=== PATIENT | male | born 1990 | race Caucasian/White ===

== ENCOUNTER 2021-11-14 18:17 | Emergency (ER) | payer OTHER, SELFPAY ==
[2021-11-14 18:43] VITALS: BP 119/40; PULSE 61; RESP 18; TEMP 36.4; O2SAT 97; BMI 29.7
[2021-11-14 18:57] LABS: MANUAL DIFF FLAG NO
[2021-11-14 18:58] LABS: Basophils Absolute Auto 0.1 X10*3/uL (0.0-0.2); Basophils Percent Auto 1.6 % (0-2); Eosinophils Absolute Auto 0.3 X10*3/uL (0.0-0.4); Eosinophils Percent Auto 8.7 % (0-4); Hematocrit 45.4 % (42.0-52.0); Hemoglobin 15.2 g/dl (14.0-18.0); Lymphocytes Absolute Auto 1.6 X10*3/uL (1.2-4.9); Lymphocytes Percent Auto 42.9 % (20-40); Mean Corpuscular HGB Conc 33.5 g/dl (31.0-36.0); Mean Corpuscular Hemoglobin 29.1 pg (27.0-33.0); Mean Platelet Volume 10.8 fL (9.4-12.4); Monocytes Absolute Auto 0.7 X10*3/uL (0.1-1.2); Monocytes Percent Auto 17.1 % (2-11); Neutrophils Absolute Auto 1.1 x10*3/uL (2.0-8.3); Neutrophils Percent Auto 29.7 % (45-73); Platelet Count 147 X10*3/uL (160-400); Red Blood Count 5.22 X10*6/uL (4.60-5.80); Red Cell Distribution Width 13.5 % (11.0-16.0); White Blood Count 3.8 X10*3/uL (4.8-10.8)
[2021-11-14 19:13] LABS: Anion Gap 10 (12-20); Blood Urea Nitrogen 14 mg/dL (9-16); Calcium 9.4 mg/dL (8.4-10.2); Carbon Dioxide 28 mmol/L (22-29); Chloride 106 mmol/L (96-108); Creatinine Clr Calc Pharmacy 115.8; Estimated Glomerular Filt Rate > 60; Glucose Random 101 mg/dL (60-115); Potassium 4.3 mmol/L (3.3-5.1); Sodium 140 mmol/L (135-145)
--- NOTE | 2021-11-14 22:00 | ED.HA ---
HPI - Headache General Chief Complaint: Headache Stated Complaint: consistent head pressure Time Seen by Provider: 11/14/21 21:56 Source: patient Mode of arrival: ambulatory Limitations: no limitations History of Present Illness HPI Narrative: Patient's history of migraines usually does not get very severe headache since yesterday noticed left frontal area headache with light sensitivity and nausea no vomiting no fever no neck pain no head injury no focal deficit no seizures Related Data Previous Rx's Medication Instructions Recorded ksibrqcspc-txivycudiwzcm-jssjytiz 1 cap PO Q6H PRN #20 cap 11/14/21 50 mg-300 mg-40 mg capsule (Fioricet) sumatriptan succinate 50 mg tablet 50 mg PO Q2H PRN #10 tab 11/14/21 (Imitrex) Allergies Allergy/AdvReac Type Severity Reaction Status Date / Time amoxicillin [AMOXICILLIN] Allergy Unknown UNKNOWN Verified 11/14/21 18:43 red dye [RED DYE] Allergy Unknown HALLUCINATI Verified 11/14/21 18:43 ONS tramadol [TRAMADOL] Allergy Unknown NAUSEA & Verified 11/14/21 18:43 VOMITING Review of Systems Review of Systems: Yes all other systems are reviewed and are negative [facility] Social History Social History Advance Directives: No Physical Exam Vital Signs: Vital Signs: Last Vital Signs Temp 97.5 F 11/14/21 18:43 Pulse 61 11/14/21 18:43 Resp 18 11/14/21 18:43 BP 119/40 L 11/14/21 18:43 Pulse Ox 97 11/14/21 18:43 BMI result Body Mass Index 29.7 Appearance: Alert. Oriented X3. No acute distress. Eyes: PERRLA, sensitive to light ENT: Pharynx normal. Oral Mucosa moist Neck: Normal inspection. Neck supple. No temporal artery tenderness CVS: Normal heart rate and rhythm. Pulses normal. Respiratory: No respiratory distress. Equal air entry bilateral, Abdomen: Soft and nontender. Bowel sounds are present, Skin: Skin warm and dry. Normal skin color. Normal skin turgor. Extremities: No lower extremity edema. No calf tenderness Neuro: Oriented X 3. No motor deficit. No sensory deficit.No cerebellar signs , cranial nerves II-XII intact MDM - Headache MDM Narrative Medical decision making narrative: Patient with migraine headache improved after subcu Imitrex discharge patient home Imitrex and Fioricet Lab Data Attestation: I reviewed the patient's lab results. Result diagrams: 11/14/21 18:49 11/14/21 18:49 Labs: Lab Results 11/14/21 11/14/21 Range/Units 18:49 18:49 WBC 3.8 L (4.8-10.8) X10*3/uL RBC 5.22 (4.60-5.80) X10*6/uL Hgb 15.2 (14.0-18.0) g/dl Hct 45.4 (42.0-52.0) % MCV 87.0 (80.0-98.0) fL MCH 29.1 (27.0-33.0) pg MCHC 33.5 (31.0-36.0) g/dl RDW 13.5 (11.0-16.0) % Plt Count 147 L (160-400) X10*3/uL MPV 10.8 (9.4-12.4) fL Immature Gran % (Auto) 0.0 (0.0-0.4) % Neut % (Auto) 29.7 L (45-73) % Lymph % (Auto) 42.9 H (20-40) % [place] % (Auto) 17.1 H (2-11) % Eos % (Auto) 8.7 H (0-4) % Baso % (Auto) 1.6 (0-2) % Lymph # (Auto) 1.6 (1.2-4.9) X10*3/uL [place] # (Auto) 0.7 (0.1-1.2) X10*3/uL Eos # (Auto) 0.3 (0.0-0.4) X10*3/uL Baso # (Auto) 0.1 (0.0-0.2) X10*3/uL Abs Immat Gran (auto) 0.00 (0.00-0.03) X10*3/uL Absolute Neuts (auto) 1.1 L (2.0-8.3) x10*3/uL Absolute Nucleated RBC 0.000 (0.0-0.012) X10*3/uL Nucleated RBC % (auto) 0.0 (0.0-0.2) /100WBC Sodium 140 (135-145) mmol/L Potassium 4.3 (3.3-5.1) mmol/L Chloride 106 (96-108) mmol/L Carbon Dioxide 28 (22-29) mmol/L Anion Gap 10 L (12-20) BUN 14 (9-16) mg/dL Creatinine 0.96 (0.5-1.4) mg/dL Estim Creat Clear Calc 115.8 Estimated GFR > 60 Random Glucose 101 (60-115) mg/dL Calcium 9.4 (8.4-10.2) mg/dL Discharge Plan Discharge Clinical Impression: Migraine Patient Disposition: Home, Self-Care Instructions: Migraine Headache (ED) Additional Instructions: Rest at home Take medication for headache as prescribed Prescriptions: New sumatriptan succinate [Imitrex] 50 mg tablet 50 mg PO Q2H PRN (Reason: migraine headache) Qty: 10 0RF Rx Instructions: do not exceed 2 doses per 24 hrs vealofrocr-dasdjvikybgwi-vuhs [Fioricet] 50-300-40 mg capsule 1 cap PO Q6H PRN (Reason: headache) Qty: 20 0RF Stand Alone Forms: Work/School Release Interventions: ED Discharge Assessment Last Done: 11/14/21 23:55 Discharge Date/Time: 11/14/21 23:56
[2021-11-14] MEDS: SUMAtriptan succinate 6 MG/0.5 ML VIAL SUBCUT (22:55)
[2021-11-14] MEDS: Ondansetron ODT 4 MG TAB.RAPDIS TRANSLINGU (22:56)
[2021-11-14] MEDS: Butalb/Acetamin/Caff 50/325/40 TABLET 1 TAB PO (23:50)
== END 2021-11-14 23:56 | disposition home or self-care (01) ==
PROVIDERS: Emergency Provider Internal Medicine
DX: G43.909 Migraine, unspecified, not intractable, without status migrainosus (principal)
CPT/HCPCS: 36415; 80048; 85025; 96372; 99283; 99284; J3030

== ENCOUNTER 2022-05-23 09:15 | Emergency (ER) | payer OTHER, SELFPAY ==
--- NOTE | ~2022-05-23 | XR_ITS ---
EXAMINATION: XR CHEST CLINICAL INFORMATION: Chest pain COMPARISON: Previous chest x-ray most recent May 2019 TECHNIQUE: Frontal view of the chest was obtained. FINDINGS: The cardiac and mediastinal contours are stable. The lung volumes are low. There is crowding of the central bronchovascular markings. The lungs are otherwise clear. There is no pleural effusion or pneumothorax. Visualized bony structures are unremarkable. XR/XR chest 1V IMPRESSION: Low lung volumes. No evidence for acute disease in the chest.
[2022-05-23 09:20] VITALS: BP 108/79; PULSE 73; RESP 18; TEMP 36.6; O2SAT 99; BMI 29.7
[2022-05-23 09:48] VITALS: BP 151/88; PULSE 80; RESP 14; TEMP 36.9; O2SAT 96
--- NOTE | 2022-05-23 09:48 | ECG_ITS ---
Test Reason : CHEST PAIN Blood Pressure : / mmHG Vent. Rate : 066 BPM Atrial Rate : 066 BPM P-R Int : 148 ms QRS Dur : 096 ms QT Int : 412 ms P-R-T Axes : 072 043 031 degrees QTc Int : 431 ms Normal sinus rhythm Normal ECG When compared with ECG of 25-MAY-2019 12:11, No significant change was found Referred By: Cecelia Sen Electronically Signed By:CRUZ LINO
--- NOTE | 2022-05-23 09:58 | ED.CHESTPAIN ---
HPI - Chest Pain General Chief Complaint: Chest Pain Stated Complaint: chest pain Time Seen by Provider: 05/23/22 09:48 Source: patient Mode of arrival: ambulatory Limitations: no limitations History of Present Illness HPI narrative: 31 yo male with history of migraines who presents to the ER for evaluation of acute onset of chest pain that started 30 minutes prior to arrival when he was on his way to work. He states he was a passenger in the car when he had sudden onset of chest pain in his left lower chest, shortness of breath, and radiation of the pain down his left arm. He reports the pain is improved on arrival to the ER in is no longer going down his left arm. He is his eyes closed during interview due to his reported shortness of breath and difficulty breathing. He reports history of similar episodes where he came to the hospital and was told it was anxiety. He is slightly anxious now but does not recall being anxious before the chest pain came on. He denies any nausea, diaphoresis. He is a smoker. He denies any history of hypertension, hyperlipidemia, family history of cardiac disease. MD complaint: chest pain Onset (ago): hour(s) (2) Timing of current episode: constant Prior episodes: Yes Onset: during rest Pain location: left chest Pain radiation: left arm Severity: moderate Pain scale (0-10): 5 Quality: aching Relieving factors: rest Exacerbating factors: stress Associated symptoms: dyspnea Treatment prior to arrival: none Risk Factors Coronary artery disease risk factors: smoking history Thoracic aortic dissection risk factors: none Related Data Previous Rx's Medication Instructions Recorded pzzazxvhwn-bqjoifkowyati-uagcrdkc 1 cap PO Q6H PRN headache #20 caps 11/14/21 50 mg-300 mg-40 mg capsule (Fioricet) sumatriptan succinate 50 mg tablet 50 mg PO Q2H PRN migraine headache 11/14/21 (Imitrex) #10 tabs Allergies Allergy/AdvReac Type Severity Reaction Status Date / Time amoxicillin [AMOXICILLIN] Allergy Unknown UNKNOWN Verified 11/14/21 18:43 red dye [RED DYE] Allergy Unknown HALLUCINATI Verified 11/14/21 18:43 ONS tramadol [TRAMADOL] Allergy Unknown NAUSEA & Verified 11/14/21 18:43 VOMITING Review of Systems Review of Systems: Constitutional: No Fever, No Chills ENT/Mouth: No sore throat, No Rhinorrhea Eyes: No Eye Pain, No Swelling, No Redness Cardiovascular: + Chest Pain, + SOB, No Orthopnea, No Edema Respiratory: No Cough, No Sputum, No Wheezing, No dyspnea Gastrointestinal: No Nausea, No Vomiting, No Diarrhea, No abdominal Pain Musculoskeletal: No joint pain, No Myalgias Skin: No Skin Lesions, No rash Neuro: No Weakness, No Numbness, No Dizziness, No Headache Psych: + Anxiety/Panic, No Depression Heme/Lymph: No Bruising, No Lymphadenopathy PMFSH Social History Social History Patient Tobacco Use Status: Current everyday Tobacco user Advance Directives: No Advance Directives Information Provided: No Physical Exam Vital Signs: Vital Signs: Last Vital Signs Temp 96.9 F 05/23/22 12:18 Pulse 72 05/23/22 12:18 Resp 14 05/23/22 12:18 BP 103/52 L 05/23/22 12:18 Pulse Ox 95 05/23/22 12:18 O2 Del Method 05/23/22 12:18 BMI result Body Mass Index 29.7 Appearance: Alert. Oriented X3. No acute distress. Eyes: Pupils equal, round and reactive to light. ENT: Pharynx normal. Neck: Normal inspection. Neck supple. CVS: Normal heart rate and rhythm. Pulses normal. Respiratory: No respiratory distress. Breath sounds normal. Abdomen: Soft and nontender. +BS x4 Skin: Skin warm and dry. Normal skin color. Normal skin turgor. No rashes. Extremities: No lower extremity edema. Neuro/psych: Oriented X 3. Pressured and rapid speech. Anxious. No motor deficit. No sensory deficit. Course Course Course Narrative: 31-year-old male with a history of migraines and prior anxiety presents to the ER for evaluation of left-sided chest pain, shortness of breath. He arrives to the ER anxious. Hx anxiety related chest pain in the past. Only risk factor for ACS is smoking. No risk factors for PE. Will check EKG and troponin. Doubt cardiac etiology more likely anxiety. Will give a dose of Ativan and reassess. Reevaluation(s) Reevaluation #1: Patient sleeping comfortably. His workup is unremarkable. Troponin less than 3.5. EKG without ischemic changes. He is stable for discharge home. PCP list provided, encourage follow-up with PCP for further evaluation and treatment. Patient agrees with plan. MDM - Chest Pain Medical Records Data Attestation: I reviewed the patient's medical records. Lab Data Attestation: I reviewed the patient's lab results. Result diagrams: 05/23/22 10:21 05/23/22 10:21 Labs: Lab Results 05/23/22 05/23/22 05/23/22 Range/Units 10: 10: 10: WBC 2.9 L (4.8-10.8) X10*3/uL RBC 5.09 (4.60-5.80) X10*6/uL Hgb 15.1 (14.0-18.0) g/dl Hct 42.3 (42.0-52.0) % MCV 83.1 (80.0-98.0) fL MCH 29.7 (27.0-33.0) pg MCHC 35.7 (31.0-36.0) g/dl RDW 13.3 (11.0-16.0) % Plt Count 143 L (160-400) X10*3/uL MPV 10.8 (9.4-12.4) fL Immature Gran % (Auto) 0.0 (0.0-0.4) % Neut % (Auto) 18.5 L (45-73) % Lymph % (Auto) 49.8 H (20-40) % [place] % (Auto) 23.2 H (2-11) % Eos % (Auto) 7.5 H (0-4) % Baso % (Auto) 1.0 (0-2) % Lymph # (Auto) 1.5 (1.2-4.9) X10*3/uL [place] # (Auto) 0.7 (0.1-1.2) X10*3/uL Eos # (Auto) 0.2 (0.0-0.4) X10*3/uL Baso # (Auto) 0.0 (0.0-0.2) X10*3/uL Abs Immat Gran (auto) 0.00 (0.00-0.03) X10*3/uL Absolute Neuts (auto) 0.5 L (2.0-8.3) x10*3/uL Absolute Nucleated RBC 0.000 (0.0-0.012) X10*3/uL Nucleated RBC % (auto) 0.0 (0.0-0.2) /100WBC Sodium 140 (135-145) mmol/L Potassium 3.8 (3.3-5.1) mmol/L Chloride 104 (96-108) mmol/L Carbon Dioxide 25 (22-29) mmol/L Anion Gap 15 (12-20) BUN 19 H (9-16) mg/dL Creatinine 1.10 (0.5-1.4) mg/dL Estim Creat Clear Calc 101.0 Estimated GFR > 60 Random Glucose 105 (60-115) mg/dL Calcium 9.5 (8.4-10.2) mg/dL Magnesium 1.8 (1.6-2.6) mg/dL Total Bilirubin 0.7 (0.0-1.0) mg/dL Direct Bilirubin 0.3 (0.0-0.5) mg/dL AST 19 (5-37) U/L ALT 17 (0-40) U/L Alkaline Phosphatase 63 (39-117) U/L Troponin I High Sens < 3.5 (<3.5-35.0) ng/L Total Protein 7.0 (6.5-8.0) g/dL Albumin 4.6 (3.5-5.0) g/dL COVID-19 ([facility]) (Negative) COVID-19 Clin Com 05/23/22 Range/Units 10:21 WBC (4.8-10.8) X10*3/uL RBC (4.60-5.80) X10*6/uL Hgb (14.0-18.0) g/dl Hct (42.0-52.0) % MCV (80.0-98.0) fL MCH (27.0-33.0) pg MCHC (31.0-36.0) g/dl RDW (11.0-16.0) % Plt Count (160-400) X10*3/uL MPV (9.4-12.4) fL Immature Gran % (Auto) (0.0-0.4) % Neut % (Auto) (45-73) % Lymph % (Auto) (20-40) % [place] % (Auto) (2-11) % Eos % (Auto) (0-4) % Baso % (Auto) (0-2) % Lymph # (Auto) (1.2-4.9) X10*3/uL [place] # (Auto) (0.1-1.2) X10*3/uL Eos # (Auto) (0.0-0.4) X10*3/uL Baso # (Auto) (0.0-0.2) X10*3/uL Abs Immat Gran (auto) (0.00-0.03) X10*3/uL Absolute Neuts (auto) (2.0-8.3) x10*3/uL Absolute Nucleated RBC (0.0-0.012) X10*3/uL Nucleated RBC % (auto) (0.0-0.2) /100WBC Sodium (135-145) mmol/L Potassium (3.3-5.1) mmol/L Chloride (96-108) mmol/L Carbon Dioxide (22-29) mmol/L Anion Gap (12-20) BUN (9-16) mg/dL Creatinine (0.5-1.4) mg/dL Estim Creat Clear Calc Estimated GFR Random Glucose (60-115) mg/dL Calcium (8.4-10.2) mg/dL Magnesium (1.6-2.6) mg/dL Total Bilirubin (0.0-1.0) mg/dL Direct Bilirubin (0.0-0.5) mg/dL AST (5-37) U/L ALT (0-40) U/L Alkaline Phosphatase (39-117) U/L Troponin I High Sens (<3.5-35.0) ng/L Total Protein (6.5-8.0) g/dL Albumin (3.5-5.0) g/dL COVID-19 ([facility]) Negative (Negative) COVID-19 Clin Com See Note ECG Data ECG #1: Attestation: I personally reviewed and interpreted this ECG as follows: ECG interpretation date: 05/23/22 ECG interpretation time: 12:32 Interpretation: normal sinus rhythm, HR 66 bpm, normal LA interval, normal QTc, no ST segment elevations or depressions Discharge Plan Discharge Clinical Impression: Chest pain, Anxiety Patient Disposition: Home, Self-Care Instructions: Chest Pain (DC), Anxiety (ED) Additional Instructions: Your workup today was unremarkable. Your symptoms are most likely due to anxiety. Recommend following up with a primary care doctor for further evaluation and treatment. Recommend stopping smoking. If you develop new or worsening symptoms call 911 or come back to the ER for further evaluation. Prescriptions: No Action sumatriptan succinate [Imitrex] 50 mg tablet 50 mg PO Q2H PRN (Reason: migraine headache) Qty: 10 0RF Rx Instructions: do not exceed 2 doses per 24 hrs fuirptqlhu-puyjeevfmvlcu-htsx [Fioricet] 50-300-40 mg capsule 1 cap PO Q6H PRN (Reason: headache) Qty: 20 0RF Stand Alone Forms: Work/School Release
[2022-05-23 10:27] LABS: Eosinophils Absolute Auto 0.2 X10*3/uL (0.0-0.4); Eosinophils Percent Auto 7.5 % (0-4); Hematocrit 42.3 % (42.0-52.0); Hemoglobin 15.1 g/dl (14.0-18.0); Lymphocytes Absolute Auto 1.5 X10*3/uL (1.2-4.9); Lymphocytes Percent Auto 49.8 % (20-40); Mean Corpuscular HGB Conc 35.7 g/dl (31.0-36.0); Mean Corpuscular Hemoglobin 29.7 pg (27.0-33.0); Mean Corpuscular Volume 83.1 fL (80.0-98.0); Mean Platelet Volume 10.8 fL (9.4-12.4); Monocytes Absolute Auto 0.7 X10*3/uL (0.1-1.2); Monocytes Percent Auto 23.2 % (2-11); Neutrophils Absolute Auto 0.5 x10*3/uL (2.0-8.3); Neutrophils Percent Auto 18.5 % (45-73); Platelet Count 143 X10*3/uL (160-400); Red Blood Count 5.09 X10*6/uL (4.60-5.80); Red Cell Distribution Width 13.3 % (11.0-16.0); SCAN SMEAR FLAG 1; White Blood Count 2.9 X10*3/uL (4.8-10.8)
[2022-05-23] MEDS: LORazepam 1 MG TABLET PO (10:33)
[2022-05-23 10:34] VITALS: BP 101/55; PULSE 76; RESP 20; TEMP 36.9; O2SAT 99
[2022-05-23 10:34] LABS: MANUAL DIFF FLAG NO
--- NOTE | 2022-05-23 10:41 | PC.NURSE ---
patient a/ox4 . ciscorrla . heart rate regular at 64 beats per minute . lungs clear . skin pink warm and dry . abdomen soft and not tender . positive bowel sounds in all quadrants . patient reports sternal chest pain that started this AM on the way he found out about life stressors such as his assets being frozen by the IRS , he is restless in bed fidgeting back and forth . Labs have been drawn . EKG done . Patient on Bedside monitor . Patient medicated with Ativan as ordered by provider . patient aware of plan of care .
[2022-05-23 10:42] LABS: Alanine Aminotransferase 17 U/L (0-40); Albumin Level 4.6 g/dL (3.5-5.0); Alkaline Phosphatase 63 U/L (39-117); Anion Gap 15 (12-20); Aspartate Amino Transferase 19 U/L (5-37); Bilirubin Direct 0.3 mg/dL (0.0-0.5); Bilirubin Total 0.7 mg/dL (0.0-1.0); Blood Urea Nitrogen 19 mg/dL (9-16); Calcium 9.5 mg/dL (8.4-10.2); Carbon Dioxide 25 mmol/L (22-29); Chloride 104 mmol/L (96-108); Estimated Glomerular Filt Rate > 60; Glucose Random 105 mg/dL (60-115); Magnesium 1.8 mg/dL (1.6-2.6); Potassium 3.8 mmol/L (3.3-5.1); Sodium 140 mmol/L (135-145)
[2022-05-23 10:43] LABS: COVID-19 Test Negative (Negative); IDNOW Serial# 55D5AD1C
[2022-05-23 10:48] LABS: Troponin-I High Sensitivity < 3.5 ng/L (<3.5-35.0)
[2022-05-23 12:18] VITALS: BP 103/52; PULSE 72; RESP 14; TEMP 36.1; O2SAT 95
== END 2022-05-23 12:41 | disposition home or self-care (01) ==
PROVIDERS: Physician Assistant; Emergency Provider Emergency Medicine
DX: R07.9 Chest pain, unspecified (principal); F41.9 Anxiety disorder, unspecified; F17.200 Nicotine dependence, unspecified, uncomplicated; Z20.822 Contact with and (suspected) exposure to COVID-19
CPT/HCPCS: 71045; 80048; 80076; 83735; 84484; 85025; 87635; 93005; 99283; 99285

== ENCOUNTER 2023-03-13 14:27 | Emergency (ER) | payer OTHER, SELFPAY ==
--- NOTE | ~2023-03-13 | XR_ITS ---
EXAMINATION: XR HAND, RIGHT CLINICAL INFORMATION: Trauma. COMPARISON: None available. TECHNIQUE: PA, lateral, and oblique views of the right hand. FINDINGS: The bones and soft tissues are normal. No fracture. Alignment is anatomic. Joint spaces are maintained. No erosions or soft tissue calcifications. XR/XR hand RT 2V IMPRESSION: Unremarkable right hand exam.
[2023-03-13 15:06] VITALS: BP 130/81; PULSE 69; RESP 17; TEMP 36.1; O2SAT 98; BMI 32.4
--- NOTE | 2023-03-13 15:06 | ED.UPPEXIN ---
HPI - Extremity Injury (Upper) General Chief Complaint: Extremity Injury, Lower Stated Complaint: r middle finger inj Time Seen by Provider: 03/13/23 18:14 Source: patient and family (patient's father) Mode of arrival: ambulatory Limitations: no limitations History of Present Illness HPI narrative: Patient is a 32 year old assigned male at with no reported medical history presenting to the emergency department today with right middle finger pain. Patient states that last night he slammed his right middle finger in a door on accident and he is continuing to have pain today. Patient denies any dizziness, lightheadedness, abdominal pain, nausea, vomiting, fever, chills, blurry vision, double vision, loss of vision, chest pain, difficulty breathing, shortness of breath, back pain, night sweats, pain with urination, increased urinary frequency, increased urinary urgency, blood in his urine or stool, syncope or a near syncopal episode, bowel incontinence, bladder incontinence, bowel retention, bladder retention, or any other complaints at this time. MD complaint: injury to: right and finger (middle) Onset (ago): day(s) (1) Other injuries: none Severity: mild Severity scale (1-10): 2 Relieving factors: none Exacerbating factors: none Context: crush Associated symptoms: denies other symptoms Related Data Previous Rx's Medication Instructions Recorded mepatanrls-saczrqqoouhpn-kpxttqlx 1 cap PO Q6H PRN headache #20 caps 11/14/21 50 mg-300 mg-40 mg capsule (Fioricet) sumatriptan succinate 50 mg tablet 50 mg PO Q2H PRN migraine headache 11/14/21 (Imitrex) #10 tabs Allergies Allergy/AdvReac Type Severity Reaction Status Date / Time amoxicillin [AMOXICILLIN] Allergy Unknown UNKNOWN Verified 11/14/21 18:43 red dye [RED DYE] Allergy Unknown HALLUCINATI Verified 11/14/21 18:43 ONS tramadol [TRAMADOL] Allergy Unknown NAUSEA & Verified 11/14/21 18:43 VOMITING Review of Systems Constitutional: Constitutional: Reports no additional constitutional complaints, Denies chills, Denies fever(s) and Denies night sweats Eyes: Eyes: Reports no additional eye complaints, Denies blurry vision, Denies change in vision, Denies diplopia, Denies eye discharge, Denies loss of vision and Denies eye pain ENT: Denies dizziness Cardiovascular: Cardiovascular: Reports no additional cardiovascular complaints, Denies chest pain, Denies lightheadedness, Denies Loss of Consciousness and Denies dyspnea Respiratory: Respiratory: Reports no additional respiratory complaints and Denies dyspnea Gastrointestinal: Gastrointestinal: Reports no additional gastrointestinal complaints, Denies abdominal pain, Denies melena, Denies hematochezia, Denies change in bowel habits and Denies change in stool character Genitourinary: Genitourinary: Reports no additional male genitourinary complaints, Denies hematuria, Denies oliguria, Denies difficulty urinating, Denies dysuria, Denies urinary frequency, Denies urinary hesitancy, Denies urinary incontinence and Denies urinary urgency Musculoskeletal: Musculoskeletal: Reports no additional musculoskeletal complaints, Denies numbness and Denies tingling Comments: right middle finger pain Neurologic: Denies dizziness, Denies loss of vision, Denies numbness and Denies tingling Psychiatric: Psychiatric: Reports no additional psychiatric complaints Endocrine: Endocrine: Reports no additional endocrine complaints Hematologic/Lymphatic: Hematologic/Lymphatic: Reports no additional hematologic/lymphatic complaints Allergic/Immunologic: Allergic/Immunologic: Reports no additional allergic/immunologic complaints PMFSH Past Medical History Attestation statement: The following information was validated with the patient. (all information validated with the patient's father) Source: old records reviewed, obtained from family (patient's father provided additional history and confirmed the history provided by the patient.) and nursing notes reviewed Social History Social History Patient Tobacco Use Status: Current everyday Tobacco user Advance Directives: No Advance Directives Information Provided: Yes Physical Exam Vital Signs: Vital Signs: Last Vital Signs Temp 97.0 F 03/13/23 15:06 Pulse 69 03/13/23 15:06 Resp 17 03/13/23 15:06 BP 130/81 03/13/23 15:06 Pulse Ox 98 03/13/23 15:06 O2 Del Method Room Air 03/13/23 15:06 BMI result Body Mass Index 32.4 Const: General: cooperative, no acute distress, alert and awake Nutritional Appearance: well nourished Orientation/consciousness: patient oriented x3 Limitations: no limitations HEENT: Head: Yes normal to inspection and Yes atraumatic Ears: hearing grossly normal bilaterally and external ears normal General nose exam: Normal external nose present, no nasal discharge noted and no epistaxis Face and sinus: Yes normal facial exam, No abrasion and No laceration Mouth: Normal oral and palatal mucosa present, no drooling and no muffled voice Eyes: General: appearance normal, both eyes and all related structures Periorbital: periorbital findings normal Eyelids: Yes eyelids normal Conjunctivae: conjunctivae normal Pupils: Equal, round and reactive pupils present EOM: EOMs intact bilaterally Neck: Neck: Yes normal visual inspection, Yes full ROM and Yes no lymphadenopathy Chest: Chest palpation & inspection: normal inspection of the chest Resp: Effort & Inspection: normal respiratory effort and able to speak in complete sentences GI: Inspection: Yes normal to inspection Neuro: General: patient oriented x3 and moves all extremities Cranial nerves: Yes Equal, round and reactive pupils present Cognition (Neuro): normal cognition Motor exam (neuro): 5/5 motor strength present throughout Sensory Exam: Normal double simultaneous stimulation for sensation Coordination: [id number]-[id number] test normal Extrem: Other: minimal bruising and swelling to the right 3rd digit including minimal bruising under the nail of the right 3rd digit. Decreased extension / flexion at the DIP joint of the right 3rd finger. General: Yes capillary refill normal Psych: Appearance: grossly normal Mental Status: mental status grossly normal Affect: normal affect Attitude: cooperative Thought process: Normal thought process present Thought content: Normal thought content present Insight: Good insight present (Psych) Course Course Course Narrative: This is an RME: Additional HPI, ROS, PE not included below will be deferred to primary provider. Patient is a 32-year-old male presents emergency department for evaluation right middle finger injury. Reports that he accidentally slammed in a door yesterday night. Finger with decreased flexion. scabbed laceration and subungal hematoma. Report last tetanus vaccination 2 years ago. Plan: XR right hand, placed in waiting room pending bed availability Medical Decision Making Medical Decision Making MDM Narrative: Patient is a 32 year old assigned male at with no reported medical history presenting to the emergency department today with right 3rd finger pain. Patient's physical exam was as noted in the physical exam portion of this chart. Patient's right hand x-ray showed no acute process. Given the patient's physical examination and current clinical presentation, patient's finger will be thoroughly cleaned and splinted in a foam finger splint. I explained my physical exam findings as well as all test results to the patient and the patient's father. I answered all questions asked by the patient and the patient's father. Patient's finger was cleaned and placed in a foam finger splint, without incident. Patient's PMS was intact prior to and after splint placement. I stressed the importance of the patient taking his medication as prescribed. I stressed the importance of the patient following up with his primary care provider and an orthopedic provider. I stressed the importance of the patient returning to the emergency department immediately if his symptoms were to worsen or if he were to develop any dizziness, shortness of breath, difficulty breathing, chest pain, blurry vision, loss of vision, nausea, vomiting, abdominal pain, fever, chills, back pain, or any other complaints. Patient and the patient's father verbalized agreement and understanding with this treatment plan and discharge. Differential Diagnosis Differential Diagnoses: The differential diagnosis associated with the presentation includes finger fracture finger ligament injury finger tendon injury finger sprain finger strain crush injury to finger Radiology Impression Discussion of test interpretation with radiology: I have reviewed the radiologist's reading. Radiologist Impression: My interpretation is in agreement with the radiologist's impression of this imaging study. EXAMINATION: XR HAND, RIGHT CLINICAL INFORMATION: Trauma.? COMPARISON: None available.? TECHNIQUE: PA, lateral, and oblique views of the right hand. FINDINGS: The bones and soft tissues are normal. No fracture. Alignment is anatomic. Joint spaces are maintained. No erosions or soft tissue calcifications.? XR/XR hand RT 2V IMPRESSION: Unremarkable right hand exam. Dictated By: Pierce Lee MD Signed By: Electronically signed by Pierce Lee MD 03/13/23 1258 Independent Historian Clinical information obtained from an independent historian. History obtained from or confirmed by: Parent (patient's father provided additional history and confirmed the history provided by the patient) Procedures Orthopedic Splinting/Casting Injury #1: Side: right Upper Extremity Injury Location: finger (3rd) Upper Extremity Immobilizer: finger (other) Discharge Plan Discharge Clinical Impression: Finger injury, Finger sprain Patient Disposition: Home, Self-Care Instructions: Finger Sprain (ED) Additional Instructions: Follow up with your primary care provider and an orthopedic provider. Return to the emergency department immediately if your symptoms worsen or if you develop any dizziness, shortness of breath, difficulty breathing, chest pain, blurry vision, loss of vision, nausea, vomiting, abdominal pain, fever, chills, back pain, or any other complaints. Prescriptions: No Action sumatriptan succinate [Imitrex] 50 mg tablet 50 mg PO Q2H PRN (Reason: migraine headache) Qty: 10 0RF Rx Instructions: do not exceed 2 doses per 24 hrs ajubpuqzth-[id number]-ymcx [Fioricet] 50-300-40 mg capsule 1 cap PO Q6H PRN (Reason: headache) Qty: 20 0RF Referrals: [facility] [place] [facility] [Provider Group] (Call to establish and follow up with a primary care provider. If you already have a primary care provider, please follow up with them.) [facility] [place] [facility], [place] [Provider Group] (Call to establish and follow up with a primary care provider. If you already have a primary care provider, please follow up with them.) [facility] [place] [facility],[place] [Provider Group] (Call to establish and follow up with a primary care provider. If you already have a primary care provider, please follow up with them.) [facility] [place] [Provider Group] (Call to establish and follow up with an orthopedic provider. ) Interventions: ED Discharge Assessment Last Done: 03/13/23 18:39 Discharge Date/Time: 03/13/23 18:39 Print Language: Marshallese
== END 2023-03-13 18:39 | disposition home or self-care (01) ==
PROVIDERS: Emergency Provider Emergency Medicine
DX: M79.644 Pain in right finger(s) (principal)
CPT/HCPCS: 73120; 99282; 99283

== ENCOUNTER 2023-03-19 11:27 | Outpatient (AMB) | payer OTHER, SELFPAY ==
--- NOTE | 2023-03-19 11:31 | MHC.OFFVIS ---
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 Patient reports he slammed his right middle finger in a door by accident and he is continues to have pain. His pain radiates down to his PIP as well as numbness and tinglings. He is unable to bend his finger to make a fist. At day 2 from injury he took his finger out of splint and noticed pus was draining from wound. 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 He was seen at ER where he was placed in a splint. He states he has pain numbness and tingling in his right middle finger which radiates down to his PIP joint. He is unable to bend his finger to make a fist. He also reports he removed his splint on day 2 of his injury and noticed pus draining from the wound. He was not placed on abx. [facility] Medical History (Updated 03/19/23 @ 12:45 by Gaby Estrada PA-C) Acute anxiety Social History (Updated 03/19/23 @ 11:39 by ABUNDIO Almazan) Patient Tobacco Use Status: Current everyday Tobacco user Current occupational status: unemployed Current occupation: right hand dominant Review of Systems Const All systems reviewed & are unremarkable except as noted in HPI and below Physical Exam Vital Signs: BMI result Body Mass Index 32.4 Const General: cooperative, healthy appearing, comfortable, no acute distress, well developed and alert Orientation/consciousness: patient oriented x3 HEENT Head: Yes normal to inspection, Yes normocephalic and Yes atraumatic Eyes General: appearance normal, both eyes and all related structures Resp Effort & Inspection: normal respiratory effort and able to speak in complete sentences Cardio Rate: regular rate Peripheral pulses: Peripheral pulses 2+ throughout GI Palpation (GI): Soft to palpation Skin Lesions: no lesions Rashes: no rashes Neuro General: patient oriented x3 Extrem Other: Right middle finger: Normal to inspection. He does have a subungual hematoma of the right middle finger and he does have laceration on distal aspect of phalanx on the volar side with some decreased sensation. There is no active drainage, no redness, no swelling. He is able to fully extend and make a fist. Assessment & Plan Assessment & Plan (1) Crush injury to finger: Code(s): S67.10XA - Crushing injury of unspecified finger(s), initial encounter Plan There is no evidence of fracture or infection on x-rays or on exam. I encouraged him to continue working on his ROM and to keep the area clean. He does have evidence of some residual dry blood on his finger and I would like him to perform warm soapy water soaks for up to 20 minutes for twice a day and keep the area clean and not submerging his finger in anything dirty. If he develops any pain, redness, swelling or other signs of infection, he should be seen in ED or contact the office to be seen. Patient Instructions: Scribed for Gaby Estrada PA-C, by Nathan Ivory medical engineer, on 03/19/2023 at 11:30 AM EST. I, Gaby Estrada PA-C, have personally reviewed and agree with the information entered by the scribe. Coding Level of Care Code New Pt Level 3 (65281) Diagnoses Crush injury to finger S67.10XA
[2023-03-19 11:35] VITALS: BMI 32.4
== END 2023-03-19 12:45 | disposition home or self-care (01) ==
PROVIDERS: Visit Provider Physician Assistant
DX: S67.192A Crushing injury of right middle finger, initial encounter (principal)
CPT/HCPCS: 99203

== ENCOUNTER → 2023-03-19 11:27 | Outpatient (BNVA) | payer OTHER, SELFPAY | PROVIDERS: Visit Provider Physician Assistant | DX: S67.192A Crushing injury of right middle finger, initial encounter (principal); W23.1XXA Caught, crushed, jammed, or pinched between stationary objects, initial encounter | CPT/HCPCS: 99202 ==

== ENCOUNTER 2023-09-10 12:05 | Emergency (ER) | payer OTHER, SELFPAY ==
--- NOTE | ~2023-09-10 | XR_ITS ---
EXAMINATION: XR HIP, RIGHT CLINICAL INFORMATION: Pain in the right hip following fall COMPARISON: None available. TECHNIQUE: Two views of the right hip and AP pelvis. FINDINGS: No fracture. Alignment is anatomic. Hip joint space is maintained. Soft tissues are unremarkable. XR/XR hip RT w PEL1V IMPRESSION: Normal right hip.
--- NOTE | ~2023-09-10 | XR_ITS ---
EXAMINATION: XR KNEE, RIGHT CLINICAL INFORMATION: Pain following fall COMPARISON: None available. TECHNIQUE: Four views of the right knee. FINDINGS: No fracture or joint effusion. Alignment is anatomic. Joint spaces are maintained. No abnormal soft tissue calcification. XR/XR knee RT 4V IMPRESSION: Normal right knee.
--- NOTE | ~2023-09-10 | XR_ITS ---
EXAMINATION: XR SHOULDER, RIGHT CLINICAL INFORMATION: Pain following fall COMPARISON: None available. TECHNIQUE: AP external rotation, Grashey, scapular Y, and axillary views of the right shoulder. FINDINGS: The bones and soft tissues are normal. No fracture. Glenohumeral and acromioclavicular alignment is anatomic with normal joint space. No abnormal soft tissue calcifications. XR/XR shoulder RT min 2V IMPRESSION: Normal right shoulder.
--- NOTE | ~2023-09-10 | XR_ITS ---
EXAMINATION: XR ELBOW, RIGHT CLINICAL INFORMATION: Pain following fall COMPARISON: None available. TECHNIQUE: AP, lateral, and oblique views of the right elbow. FINDINGS: The bones and soft tissues are normal. No fracture or joint effusion. Alignment is anatomic. Joint spaces are maintained. XR/XR elbow RT min 3V IMPRESSION: Normal right elbow.
--- NOTE | ~2023-09-10 | XR_ITS ---
EXAMINATION: XR LUMBOSACRAL SPINE CLINICAL INFORMATION: Pain following fall COMPARISON: None available. TECHNIQUE: Three views of the lumbosacral spine. FINDINGS: The vertebral bodies and posterior elements are normal. The disc spaces are preserved and the vertebral alignment is normal. The paraspinal soft tissues are normal. XR/XR lumbar spine 2-3V IMPRESSION: Unremarkable examination.
--- NOTE | ~2023-09-10 | CT_ITS ---
EXAMINATION: CT HEAD WITHOUT CONTRAST CT CERVICAL SPINE WITHOUT CONTRAST CLINICAL INFORMATION: Head and neck injury COMPARISON: 05/25/2019 CT head TECHNIQUE: Contiguous axial imaging was performed from the skull base to vertex without intravenous administration of contrast. Contiguous axial imaging was performed from the upper chest through the skull base without intravenous administration of contrast. Coronal and sagittal reformats were obtained at the acquisition workstation. This CT examination was performed using dose optimization techniques as appropriate, variously including the following: *Automated exposure control. *Adjustment of mA and/or kV according to patient size (this includes techniques or standardized protocols for targeted exams where dose is matched to indication/reason for exam; i.e. extremities or head). *Use of iterative reconstruction technique. DLP: 658.11 mGy-cm for the head and 440.85 mGy-cm for the cervical spine FINDINGS: Head: There is no evidence of acute intracranial hemorrhage or edematous territorial infarction. Sanderson-white matter differentiation is preserved. There is no abnormal attenuation within the brain parenchyma. The ventricles are normal in morphology and size. No evidence for obstructive hydrocephalus. No abnormal mass effect or midline shift. No extra-axial fluid collections. No acute soft tissue or osseous abnormalities. The mastoid air cells and visualized paranasal sinuses are clear. Cervical Spine: The atlantooccipital and atlantoaxial articulations remain well aligned. Straightening of the normal cervical lordosis. Otherwise, there is anatomic alignment of the vertebral bodies and posterior elements. No evidence of acute fracture or subluxation. The vertebral body heights and disc spaces are maintained. There is no prevertebral soft tissue swelling. The thyroid gland and remaining cervical soft tissues are within normal limits. The lung apices demonstrate no abnormalities. CT/CT cervical spine wo IV con IMPRESSION: No acute intracranial pathology. No fracture seen in the cervical spine
--- NOTE | 2023-09-10 12:23 | ED_ITS ---
HPI - Fall General Chief Complaint: Fall Stated Complaint: fell a cpl days ago, r side pain Time Seen by Provider: 09/10/23 14:34 Source: patient, RN notes reviewed and old records reviewed Mode of arrival: ambulatory History of Present Illness HPI Narrative: 33-year-old male with a past medical history of anxiety presenting to the ED complaining of neck, right shoulder/scapular, right elbow and right knee pain s/p mechanical slip and fall on ice 2 days ago. Reports slipped and fell onto right side, + hit head, denies LOC or taking anticoagulation. Denies chest pain, shortness of breath, abdominal pain, nausea/vomiting, incontinen ce/retention MD complaint: fall Related Data Previous Rx's Medication Instructions Recorded acetaminophen 500 mg tablet 500 mg PO Q6H PRN fever or pain 09/10/23 (Tylenol Extra Strength) #14 tabs cyclobenzaprine 5 mg tablet 5 mg PO Q8H PRN pain (scale score 09/10/23 7-10) 5 days #14 tabs lidocaine 5 % topical patch 1 patch topical DAILY PRN pain #30 09/10/23 (Lidoderm) ea naproxen 500 mg tablet 500 mg PO BID PRN pain 10 days #20 09/10/23 tabs Allergies Allergy/AdvReac Type Severity Reaction Status Date / Time amoxicillin [AMOXICILLIN] Allergy Unknown UNKNOWN Verified 09/10/23 12:24 red dye [RED DYE] Allergy Unknown HALLUCINATI Verified 09/10/23 12:24 ONS tramadol [TRAMADOL] Allergy Unknown NAUSEA & Verified 09/10/23 12:24 VOMITING Review of Systems Review of Systems: Constitutional: No Fever, No Chills ENT/Mouth: No Ear Pain, No Swallowing Difficulty Cardiovascular: No Chest Pain, No SOB Respiratory: No Cough Gastrointestinal: No Nausea, No Vomiting, No Diarrhea, No Constipation, No Abdominal pain Genitourinary: No Dysuria, No Urinary Frequency, No Hematuria, No Urinary Incontinence/retention, No Flank Pain Musculoskeletal: + joint pain, +Myalgias, No Joint Swelling Skin: No Skin Lesions, No rash Neuro: No Weakness, No Numbness, No Paresthesias, +LAMONTE Yes all other systems are reviewed and are negative Constitutional: Constitutional: Reports as per HPI Neurologic: Denies Abnormal speech present [facility] Past Medical History Attestation statement: The following information was validated with the patient. Source: old records reviewed Onset Date is defined in the Problem List Problems that require an onset date and time if occurred within 24 hrs of arrival to the ED Aortic Dissection and Rupture; Neurologic impairment; Cardiopulmonary Arrest; Endotracheal Intubation; Insertion or Replacement of Mechanical Circulatory Assist Device Medical History Acute anxiety Social History Social History Patient Tobacco Use Status: Current everyday Tobacco user Advance Directives: No Advance Directives Information Provided: No Current occupational status: unemployed Current occupation: right hand dominant Physical Exam Vital Signs: Vital Signs: Last Vital Signs Temp 97.7 F 09/10/23 14:30 Pulse 79 09/10/23 14:30 Resp 22 H 09/10/23 14:30 BP 117/64 09/10/23 14:30 Pulse Ox 94 09/10/23 14:30 O2 Del Method Room Air 09/10/23 14:30 BMI result Body Mass Index 33.1 Const: General: cooperative, healthy appearing and no acute distress Orientation/consciousness: patient oriented x3 Limitations: no limitations HEENT: Head: Yes normal to inspection and Yes atraumatic Ears: hearing grossly normal bilaterally General nose exam: Normal external nose present Face and sinus: Yes normal facial exam Eyes: General: appearance normal, both eyes and all related structures Pupils: Equal, round and reactive pupils present EOM: EOMs intact bilaterally Neck: Other: +R sided paraspinal/trapezius muscle ten derness to palpation Neck: Yes normal visual inspection, Yes no meningeal signs and No anterior neck swelling Chest: Chest palpation & inspection: normal inspection of the chest Resp: Effort & Inspection: normal respiratory effort and no respiratory distress Cardio: Rate: regular rate Peripheral pulses: Peripheral pulses 2+ throughout GI: Inspection: Yes normal to inspection Palpation (GI): Soft to palpation, nontender, no guarding and not rigid : General: Yes no CVA tenderness Back/Spine/Pelvis: Other: No midline cervical/thoracic/lumbar spinous tenderness/step-off or deformity Back: no CVA tenderness Skin: Rashes: no rashes Wounds: no wounds Neuro: General: patient oriented x3, gait normal, tone normal, moves all extremities, no meningeal signs, no focal motor deficits and CN's II-XI intact bilaterally Cranial nerves: Yes CN's II-XII intact bilaterally, Yes Equal, round and reactive pupils present and Yes Bilaterally intact EOM present Cognition (Neuro): normal cognition Speech: No Abnormal speech present Gait exam (Neuro): Normal gait present Motor exam (neuro): 5/5 motor strength present throughout Extrem: Other: Right shoulder without noted deformity. Diffusely tender to palpation with limited ROM secondary to pain. Neurovascularly intact distally. Right elbow with mild tenderness. Full extension limited secondary to pain. Right hand/wrist nontender. No snuffbox tenderness Right knee without noted deformity. Mildly tender. Full flexion limited secondary to pain General: Yes normal to inspection Course Course Course Narrative: RME 12:23PM - 33yoM presenting with complaints of right sided neck, shoulder, elbow, hip and lower back pain after a slip and fall yesterday while walking to the [employer]. Unsure if he hit his head. No loss of consciousness. Not on any blood thinners. No symptoms prior to the fall. Denies any other symptoms complaints or concerns at this time. On exam no obvious deformities. Full range of motion of all extremities. Plan: Will obtain CT scan of brain/cervical spine, x-ray of right shoulder, x- ray of right elbow, x-ray of right hip and x-ray of lumbar spine. Patient is sent back to the waiting room to be evaluated and emergency monitor care. 1537--CT head/brain wo IV con/CT cervical spine wo IV con IMPRESSION: No acute intracranial pathology. No fracture seen in the cervical spine XR shoulder RT min 2V IMPRESSION: Normal right shoulder. XR elbow RT min 3V IMPRESSION: Normal right elbow. XR hip RT w PEL1V IMPRESSION: Normal right hip. XR lumbar spine 2-3V IMPRESSION: Unremarkable examination. XR knee RT 4V IMPRESSION: Normal right knee. Results discussed with patient including worrisome signs and symptoms and strict return precautions, and when to return to the emergency department. They verbalized understanding and feel safe for discharge at this time. Medications Administered Discontinued Medications Generic Name Dose Route Start Last Admin Trade Name Freq PRN Reason Stop Dose Admin Cyclobenzaprine HCl 5 mg 09/10/23 15:21 09/10/23 15:55 Cyclobenzaprine Hcl 5 Mg Tablet PO 09/10/23 15:22 5 mg ONCE ONE Administration Medical Decision Making Medical Decision Making MDM Narrative: 33-year-old male with a past medical history of anxiety presenting to the ED complaining of neck, right shoulder/scapular, right elbow and right knee pain s/p mechanical slip and fall on ice 2 days ago. On exam vital signs stable, NAD, nontoxic appearing, physical exam as noted above. Concern for contusions vs fracture vs sprain/MSK pain. Rule out ICH. Low suspicion for intrathoracic or intra-abdominal bleeding Plan: CTs and x-rays ordered in triage Please refer to course for remaining clinical decision making, interpretation of labs/imaging results, and discussions with consultants and/or family members. Differential Diagnosis Differential Diagnoses: The differential diagnosis associated with the presentation includes As above Admission/Observation Consideration of admission/observation: Escalation of care including admission/observation considered Lab Data [facility] Lab Attestation statement: I reviewed the patient's lab results. Radiology Impression Discussion of test interpretation with radiology: I have reviewed the radiologist's reading. External Record Review External record reviewed: Inpatient record, Office record, Outpatient record, Prior outpatient labs, Prior outpatient radiology, Primary care record and Outside ED record Tests considered The following testing was considered but not selected: As above Prescription Management I considered prescription management with: Pain Medication Discharge Plan Discharge Clinical Impression: Myalgia, Neck pain, Acute pain of right shoulder, Elbow pain, right, Fall Patient Disposition: Home, Self-Care Instructions: Arthralgia (ED) Additional Instructions: Your x-rays and CT scans are reassuring Your pain is likely musculoskeletal Flexeril is a muscle relaxer, take at night as it makes you drowsy, do not drive, drink alcohol, or operate machinery while taking it Naproxen as an anti-inflammatory / pain medication, take with food Lidoderm patches are numbing patches, apply to painful area In addition take Tylenol at home If symptoms persist or worsen, pain becomes unbearable, you developed urinary retention or incontinence, or weakness return to the ED Prescriptions: New acetaminophen [Tylenol Extra Strength] 500 mg tablet 500 mg PO Q6H PRN (Reason: fever or pain) Qty: 14 0RF lidocaine [Lidoderm] 5 % adhesive patch,medicated 1 patch topical DAILY MDD remove after 12 hours PRN (Reason: pain) Qty: 30 0RF Rx Instructions: leave on most painful area for up to 12 hrs naproxen 500 mg tablet 500 mg PO BID PRN (Reason: pain) 10 Days Qty: 20 0RF cyclobenzaprine 5 mg tablet 5 mg PO Q8H PRN (Reason: pain (scale score 7-10)) 5 Days Qty: 14 0RF Referrals: [facility] [Provider Group] Physician,Unknown J [Primary Care Provider] - 5 days Interventions: ED Discharge Assessment Last Done: 09/10/23 16:58 Discharge Date/Time: 09/10/23 16:59
[2023-09-10 12:24] VITALS: BP 117/71; PULSE 60; RESP 18; TEMP 36.1; O2SAT 98; BMI 33.1
[2023-09-10 14:30] VITALS: BP 117/64; PULSE 79; RESP 22; TEMP 36.5; O2SAT 94
[2023-09-10] MEDS: Cyclobenzaprine HCl 5 MG TABLET PO (15:55)
== END 2023-09-10 16:59 | disposition home or self-care (01) ==
PROVIDERS: Emergency Provider Emergency Medicine
DX: Z04.3 Encounter for examination and observation following other accident (principal); M54.2 Cervicalgia; M79.18 Myalgia, other site; M25.511 Pain in right shoulder; M25.521 Pain in right elbow; Z91.81 History of falling
CPT/HCPCS: 70450; 72100; 72125; 73030; 73080; 73502; 73564; 99283; 99284

== ENCOUNTER 2023-10-11 08:04 | Emergency (ER) | payer OTHER, SELFPAY ==
--- NOTE | ~2023-10-11 | NM_ITS ---
EXAMINATION: BILIARY TRACT IMAGING STUDY WITH CCK CLINICAL INFORMATION: Acalculus cholecystitis. COMPARISON: CT abdomen/pelvis 10/11/2023. TECHNIQUE: Serial gamma scintillation camera images were obtained over the abdomen for a total observation period of 90 minutes following the intravenous administration of 5 mCi Tc-99m mebrofenin. FINDINGS: There is good concentration of activity in the liver by 5 minutes post injection. Biliary activity is visualized by 15 minutes. The gallbladder is well visualized by 15-20 minutes. At 60 minutes post radiopharmaceutical injection, a 30-minute infusion of 1.9 micrograms Sincalide was then begun and an additional 30 minutes of images were obtained. There is good emptying of the gallbladder. By the end of the study there is good clearance of activity from the liver and visualization of diffuse small bowel activity. The calculated gallbladder ejection fraction is 66% (normal gallbladder ejection fraction is greater than 35%). NM/NM hepatobiliary w pharm IMPRESSION: Visualization of the gallbladder is evidence of a patent cystic duct and strong evidence against the diagnosis of acute cholecystitis. The common bile duct is patent. Gallbladder emptying and ejection fraction are normal. Liver function appears normal.
--- NOTE | ~2023-10-11 | CT_ITS ---
EXAMINATION: CT ABDOMEN AND PELVIS WITH CONTRAST CLINICAL INFORMATION: Upper abdominal pain COMPARISON: None available. TECHNIQUE: Multidetector volumetric images were obtained from the superior aspect of the liver through the pubic symphysis following administration 85 mL of Omnipaque 350 intravenous contrast. Sagittal and coronal reformatted images were obtained on the technologist's workstation. Oral contrast: No This CT examination was performed using dose optimization techniques as appropriate, variously including the following: *Automated exposure control *Adjustment of mA and/or kV according to patient size (this includes techniques or standardized protocols for targeted exams where dose is matched to indication/reason for exam; i.e. extremities or head) *Use of iterative reconstruction technique DLP: 616 mGy-cm FINDINGS: LUNG BASES: There is minimal bibasilar atelectasis. Heart size is normal. LIVER, GALLBLADDER, AND BILIARY TREE: The liver is normal in size, shape, and attenuation. No focal hepatic lesion or biliary ductal dilatation is present. There is diffuse marianela gallbladder wall fluid collection but no radiopaque renal calculi seen. PANCREAS: Unremarkable. SPLEEN: Unremarkable. ADRENAL GLANDS: Unremarkable. KIDNEYS AND URETERS: The kidneys are normal in size, shape, and attenuation. No hydronephrosis, hydroureter, or calculi seen. No perinephric stranding. BLADDER: Unremarkable. GASTROINTESTINAL TRACT: The small and large bowel are unremarkable. The appendix is unremarkable. The stomach is nondistended. ABDOMINAL WALL: Small umbilical hernia containing fat. LYMPH NODES: Normal. VASCULAR: Unremarkable. PELVIC VISCERA: Unremarkable. OSSEOUS STRUCTURES: No aggressive lytic or sclerotic process seen. CT/CT abdomen pelvis w IV con IMPRESSION: But he gallbladder wall fluid collection without radiopaque calculi. Patient has upper abdominal pain. Findings are suspicious for acute cholecystitis. Correlate with HIDA study. Fleischner guidelines were followed.
[2023-10-11 08:07] VITALS: BP 152/102; PULSE 72; RESP 16; TEMP 36.6; O2SAT 98; BMI 32.7
--- NOTE | 2023-10-11 08:20 | ED.ABDPAIN ---
HPI - Abdominal Pain General Chief Complaint: Abdominal Pain Stated Complaint: Abd pain Time Seen by Provider: 10/11/23 08:14 Source: patient Mode of arrival: ambulatory Limitations: no limitations History of Present Illness MD elicited complaint: abdominal pain Pertinent past history: none Onset (ago): day(s) (1) Pain Consistency: constant Location: epigastric Severity: moderate Quality: aching Radiation: epigastric Exacerbating factors: nothing Relieving factors: nothing Related Data Previous Rx's Medication Instructions Recorded acetaminophen 500 mg tablet 500 mg PO Q6H PRN fever or pain 09/10/23 (Tylenol Extra Strength) #14 tabs cyclobenzaprine 5 mg tablet 5 mg PO Q8H PRN pain (scale score 09/10/23 7-10) 5 days #14 tabs lidocaine 5 % topical patch 1 patch topical DAILY PRN pain #30 09/10/23 (Lidoderm) ea naproxen 500 mg tablet 500 mg PO BID PRN pain 10 days #20 09/10/23 tabs Allergies Allergy/AdvReac Type Severity Reaction Status Date / Time amoxicillin [AMOXICILLIN] Allergy Unknown UNKNOWN Verified 09/10/23 12:24 red dye [RED DYE] Allergy Unknown HALLUCINATI Verified 09/10/23 12:24 ONS tramadol [TRAMADOL] Allergy Unknown NAUSEA & Verified 09/10/23 12:24 VOMITING Review of Systems Constitutional: Reports no additional constitutional complaints Reports system reviewed and no additional complaints, except as documented [facility] Past Medical History [facility] Narrative: Denies any medical problems Medical History Acute anxiety Social History Social History Patient Tobacco Use Status: Current everyday Tobacco user Smoked in Last 30 Days: Yes Advance Directives: No Advance Directives Information Provided: No Current occupational status: unemployed Current occupation: right hand dominant Physical Exam ED Vital Signs: Vital Signs - 24 hr 10/11/23 08:07 10/11/23 08:32 10/11/23 10:20 Temperature 98 F 97.7 F Pulse Rate 72 76 Respiratory Rate 16 22 H 16 Blood Pressure 152/102 H 109/73 Pulse Oximetry 98 95 Oxygen Delivery Method Room Air Room Air 10/11/23 14:22 Temperature 97.9 F Pulse Rate 75 Respiratory Rate 15 Blood Pressure 101/57 L Pulse Oximetry 95 Oxygen Delivery Method Room Air BMI result Body Mass Index 32.7 On exam is anxious appearing somewhat restless Const General: cooperative Nutritional Appearance: average body habitus Orientation/consciousness: oriented to person and patient oriented x3 Limitations: no limitations HENMT Head: Yes normal to inspection General nose exam: Normal external nose present Face and sinus: Yes normal facial exam Neck Neck: Yes normal visual inspection Chest Chest palpation & inspection: normal inspection of the chest Resp Effort & Inspection: normal respiratory effort Auscultation: clear to auscultation bilaterally Cardio Jugular venous distension: no JVD Rate: regular rate Rhythm: regular rhythm GI Inspection: Yes normal to inspection Palpation (GI): Soft to palpation Auscultation: normal bowel sounds Skin General skin exam: no rashes or lesions noted Lesions: no lesions Rashes: no rashes Neuro General: oriented to person and patient oriented x3 Course Reevaluation(s) Reevaluation #1: spoke with Dr Wiggins will see pt in ED Time: 14:49 Reevaluation #2: HIDA scan ordered pt will be signed out to Dr Wallace,I am off shift now HIDA scan pending Time: 16:00 Medical Decision Making Medical Decision Making MDM Narrative: Patient presented with upper abdominal pain will obtain labs, will provide analgesia, administer fluid fluids Differential Diagnosis Differential Diagnoses: The differential diagnosis associated with the presentation includes Pancreatitis/peptic ulcer disease/acute appendicitis/perforated bowel Admission/Observation Consideration of admission/observation: Escalation of care including admission/observation considered Consult Healthcare Provider Management of the patient was discussed with: [employer] Dr Wiggins Lab Data MDM Lab Attestation statement: I reviewed the patient's lab results. 10/11/23 08:25 10/11/23 08:25 Labs: Lab Results 10/11/23 Range/Units 08:25 WBC 5.8 (4.8-10.8) X10*3/uL RBC 5.69 (4.60-5.80) X10*6/uL Hgb 16.9 (14.0-18.0) g/dl Hct 48.1 (42.0-52.0) % MCV 84.5 (80.0-98.0) fL MCH 29.7 (27.0-33.0) pg MCHC 35.1 (31.0-36.0) g/dl RDW 13.2 (11.0-16.0) % Plt Count 142 L (160-400) X10*3/uL MPV 10.8 (9.4-12.4) fL Immature Gran % (Auto) 0.2 (0.0-0.4) % Neut % (Auto) 54.9 (45-73) % Lymph % (Auto) 24.0 (20-40) % [place] % (Auto) 13.3 H (2-11) % Eos % (Auto) 6.2 H (0-4) % Baso % (Auto) 1.4 (0-2) % Lymph # (Auto) 1.4 (1.2-4.9) X10*3/uL [place] # (Auto) 0.8 (0.1-1.2) X10*3/uL Eos # (Auto) 0.4 (0.0-0.4) X10*3/uL Baso # (Auto) 0.1 (0.0-0.2) X10*3/uL Abs Immat Gran (auto) 0.01 (0.00-0.03) X10*3/uL Absolute Neuts (auto) 3.2 (2.0-8.3) x10*3/uL Absolute Nucleated RBC 0.000 (0.0-0.012) X10*3/uL Nucleated RBC % (auto) 0.0 (0.0-0.2) /100WBC Sodium 140 (135-145) mmol/L Potassium 4.3 (3.3-5.1) mmol/L Chloride 105 (96-108) mmol/L Carbon Dioxide 29 (22-29) mmol/L Anion Gap 10 L (12-20) BUN 20 H (9-16) mg/dL Creatinine 1.04 (0.5-1.4) mg/dL Estim Creat Clear Calc 109.8 Estimated GFR > 60 Random Glucose 105 (60-115) mg/dL Calcium 9.0 (8.4-10.2) mg/dL Total Bilirubin 0.4 (0.0-1.0) mg/dL AST 16 (5-37) U/L ALT 20 (0-40) U/L Alkaline Phosphatase 57 (39-117) U/L Troponin I High Sens < 2.7 (<3.5-35.0) ng/L Total Protein 6.0 L (6.5-8.0) g/dL Albumin 3.8 (3.5-5.0) g/dL Lipase 19 (8-78) U/L Independent Interpretation I performed an independent interpretation of an: CT Scan Radiology Impression Discussion of test interpretation with radiology: I have reviewed the radiologist's reading. Medications Administered Discontinued Medications Generic Name Dose Route Start Last Admin Trade Name Freq PRN Reason Stop Dose Admin Sodium Chloride 1,000 mls @ 999 mls/hr 10/11/23 08:30 10/11/23 09:43 Ns IVCONT 10/11/23 09:30 Infused .Q1H1M JODI Infusion Iohexol 100 ml 10/11/23 12:05 10/11/23 12:05 Iohexol 350 Mg/Ml 100 Ml Infus..Btl IV 10/11/23 12:06 85 ml ONCE ONE Administration Lorazepam 1 mg 10/11/23 08:19 10/11/23 08:33 Lorazepam 2 Mg/Ml Vial IVPUSH 10/11/23 08:20 1 mg ONCE ONE Administration Morphine Sulfate 4 mg 10/11/23 08:19 10/11/23 08:32 Morphine Sulfate 4 Mg/Ml Cartridge IVPUSH 10/11/23 08:20 4 mg ONCE ONE Administration Protocol Morphine Sulfate 4 mg 10/11/23 11:12 10/11/23 11:17 Morphine Sulfate 4 Mg/Ml Cartridge IVPUSH 10/11/23 11:13 4 mg ONCE ONE Administration Protocol Ondansetron HCl 4 mg 10/11/23 08:19 10/11/23 08:32 Ondansetron Hcl 4 Mg/2 Ml Vial IVPUSH 10/11/23 08:20 4 mg ONCE ONE Administration Discharge Plan Discharge Clinical Impression: Abdominal pain Prescriptions: No Action acetaminophen [Tylenol Extra Strength] 500 mg tablet 500 mg PO Q6H PRN (Reason: fever or pain) Qty: 14 0RF lidocaine [Lidoderm] 5 % adhesive patch,medicated 1 patch topical DAILY MDD remove after 12 hours PRN (Reason: pain) Qty: 30 0RF Rx Instructions: leave on most painful area for up to 12 hrs naproxen 500 mg tablet 500 mg PO BID PRN (Reason: pain) 10 Days Qty: 20 0RF cyclobenzaprine 5 mg tablet 5 mg PO Q8H PRN (Reason: pain (scale score 7-10)) 5 Days Qty: 14 0RF
[2023-10-11 08:31] LABS: MANUAL DIFF FLAG NO
[2023-10-11 08:32] VITALS: RESP 22
[2023-10-11] MEDS: ondansetron HCL 4 MG/2 ML VIAL IVPUSH (08:32)
[2023-10-11] MEDS: Morphine Sulfate 4 MG/ML CARTRIDGE IVPUSH ×3 (08:32→16:04)
[2023-10-11] MEDS: LORazepam 2 MG/ML VIAL 1 MG IVPUSH (08:33)
[2023-10-11] MEDS: 0.9 % Sodium Chloride 1,000 ML 999 ML IVCONT (08:33)
[2023-10-11 08:34] LABS: Basophils Absolute Auto 0.1 X10*3/uL (0.0-0.2); Basophils Percent Auto 1.4 % (0-2); Eosinophils Absolute Auto 0.4 X10*3/uL (0.0-0.4); Eosinophils Percent Auto 6.2 % (0-4); Hematocrit 48.1 % (42.0-52.0); Hemoglobin 16.9 g/dl (14.0-18.0); Imm Gran Abs Auto 0.01 X10*3/uL (0.00-0.03); Imm Gran Pct Auto 0.2 % (0.0-0.4); Lymphocytes Absolute Auto 1.4 X10*3/uL (1.2-4.9); Mean Corpuscular HGB Conc 35.1 g/dl (31.0-36.0); Mean Corpuscular Hemoglobin 29.7 pg (27.0-33.0); Mean Corpuscular Volume 84.5 fL (80.0-98.0); Mean Platelet Volume 10.8 fL (9.4-12.4); Monocytes Absolute Auto 0.8 X10*3/uL (0.1-1.2); Monocytes Percent Auto 13.3 % (2-11); Neutrophils Absolute Auto 3.2 x10*3/uL (2.0-8.3); Neutrophils Percent Auto 54.9 % (45-73); Platelet Count 142 X10*3/uL (160-400); Red Blood Count 5.69 X10*6/uL (4.60-5.80); Red Cell Distribution Width 13.2 % (11.0-16.0); White Blood Count 5.8 X10*3/uL (4.8-10.8)
[2023-10-11 09:03] LABS: Alanine Aminotransferase 20 U/L (0-40); Albumin Level 3.8 g/dL (3.5-5.0); Alkaline Phosphatase 57 U/L (39-117); Anion Gap 10 (12-20); Aspartate Amino Transferase 16 U/L (5-37); Bilirubin Total 0.4 mg/dL (0.0-1.0); Blood Urea Nitrogen 20 mg/dL (9-16); Carbon Dioxide 29 mmol/L (22-29); Chloride 105 mmol/L (96-108); Creatinine Clr Calc Pharmacy 109.8; Estimated Glomerular Filt Rate > 60; Glucose Random 105 mg/dL (60-115); Lipase 19 U/L (8-78); Potassium 4.3 mmol/L (3.3-5.1); Sodium 140 mmol/L (135-145)
[2023-10-11 09:12] LABS: Troponin-I High Sensitivity < 2.7 ng/L (<3.5-35.0)
[2023-10-11 10:20] VITALS: BP 109/73; PULSE 76; RESP 16; TEMP 36.5; O2SAT 95
[2023-10-11] MEDS: iohexoL 350 MG/ML 100 ML INFUS..BTL IV (12:05)
[2023-10-11 14:22] VITALS: BP 101/57; PULSE 75; RESP 15; TEMP 36.6; O2SAT 95
--- NOTE | 2023-10-11 15:03 | PC.NURSE ---
Patient seen by Dr. Wiggins, patient reports feeling better
--- NOTE | 2023-10-11 15:46 | P.CONGS_ITS ---
History of Present Illness Consult details Consult date: 10/11/23 Narrative: Patient is a 33-year-old male who presented to the emergency department because of pain of the upper abdomen commencing at 01:00 this morning. He has never had such symptoms before. 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 Patient is unclear of any specific diet which led to his symptoms. He denies any sick contacts or unusual diet. He had some initially nausea and vomiting but no diarrhea or loose stool. Chart was reviewed patient evaluated. History of anxiety. Patient is not the best historian. Collateral history was also obtained from grandfather. Abdominal symptoms have improved with IV analgesia. Patient's white count and liver function tests are essentially within normal limits. CT scan demonstrated nonspecific findings in the right upper quadrant. Not diagnostic for cholelithiasis. [facility] Past Medical History Medical History Acute anxiety Social History Social History Patient Tobacco Use Status: Current everyday Tobacco user Smoked in Last 30 Days: Yes Advance Directives: No Advance Directives Information Provided: No Current occupational status: unemployed Current occupation: right hand dominant Meds Allergies Allergy/AdvReac Type Severity Reaction Status Date / Time amoxicillin [AMOXICILLIN] Allergy Unknown UNKNOWN Verified 09/10/23 12:24 red dye [RED DYE] Allergy Unknown HALLUCINATI Verified 09/10/23 12:24 ONS tramadol [TRAMADOL] Allergy Unknown NAUSEA & Verified 09/10/23 12:24 VOMITING Physical Exam 2 Vital Signs: Vital Signs: Last Vital Signs Temp 97.9 F 10/11/23 14:22 Pulse 75 10/11/23 14:22 Resp 15 10/11/23 14:22 BP 101/57 L 10/11/23 14:22 Pulse Ox 95 10/11/23 14:22 O2 Del Method Room Air 10/11/23 14:22 BMI result Body Mass Index 32.7 Chest: Other: Chest breath sounds bilaterally, HS 1 in 2 GI: Other: Abdomen soft, mild epigastric/right upper quadrant tenderness but no evidence of any guarding, rebound, or rigidity. Challenging exam secondary to the patient's anxiety. Results Labs 10/11/23 08:25 10/11/23 08:25 Labs: Abnormal lab results 10/11/23 Range/Units 08:25 Plt Count 142 L (160-400) X10*3/uL Rich % (Auto) 13.3 H (2-11) % Eos % (Auto) 6.2 H (0-4) % Anion Gap 10 L (12-20) BUN 20 H (9-16) mg/dL Total Protein 6.0 L (6.5-8.0) g/dL Short CBC 10/11/23 Range/Units 08:25 WBC 5.8 (4.8-10.8) X10*3/uL Hgb 16.9 (14.0-18.0) g/dl Hct 48.1 (42.0-52.0) % Plt Count 142 L (160-400) X10*3/uL BMP 10/11/23 08:25 Sodium 140 Potassium 4.3 Chloride 105 Carbon Dioxide 29 BUN 20 H Creatinine 1.04 Calcium 9.0 Liver Function 10/11/23 Range/Units 08:25 Total Bilirubin 0.4 (0.0-1.0) mg/dL AST 16 (5-37) U/L ALT 20 (0-40) U/L Alkaline Phosphatase 57 (39-117) U/L Albumin 3.8 (3.5-5.0) g/dL All other labs normal. Assessment and Plan (1) Abdominal pain: Status: Acute Plan I reviewed the case with the patient's current ER physician, and the plan is to arrange for either ultrasound or HIDA scan depending on availability on the weekend and direct further therapy based on these results. Procedures Date of Service Date of Service: 10/11/23
[2023-10-11 16:00] VITALS: BP 112/73; RESP 18; TEMP 36.4; O2SAT 97
--- NOTE | 2023-10-11 17:18 | PC.NURSE ---
Brought to nuclear med
[2023-10-11 19:23] VITALS: BP 103/70; PULSE 54; RESP 17; TEMP 36.5; O2SAT 98
== END 2023-10-11 20:15 | disposition home or self-care (01) ==
PROVIDERS: Emergency Medicine; Emergency Provider Student in an Organized Health Care Education/Training Program
DX: R10.13 Epigastric pain (principal); F41.9 Anxiety disorder, unspecified; F17.210 Nicotine dependence, cigarettes, uncomplicated; Z79.899 Other long term (current) drug therapy
CPT/HCPCS: 36415; 74177; 78227; 80053; 83690; 84484; 85025; 96361; 96374; 96375; 96376; 99284; A9537; J2060; J2270; J2405; J2805; Q9967

== ENCOUNTER → 2023-10-11 08:35 | Outpatient (BNV) | payer OTHER, SELFPAY | PROVIDERS: Emergency Provider Emergency Medicine; Visit Provider Surgery | DX: R10.9 Unspecified abdominal pain (principal) | CPT/HCPCS: 99285 ==

== ENCOUNTER 2024-01-15 09:48 | Day surgery (SDC) | payer OTHER, SELFPAY ==
[2024-01-15] VITALS (13 sets, daily range): BP systolic 91–178; BP diastolic 47–106; PULSE 54–97; RESP 16–24; TEMP 36.3–36.6; O2SAT 95–100; BMI 32.6
--- NOTE | ~2024-01-15 | US_ITS ---
EXAMINATION: US ABDOMEN LIMITED CLINICAL INFORMATION: Right upper quadrant pain. COMPARISON: None available. TECHNIQUE: Real-time imaging of the right upper quadrant abdominal viscera. FINDINGS: PANCREAS: The visualized portion of the pancreas head and body are normal, portion of the pancreatic body and tail, not visualized are obscured by bowel gas. LIVER: Normal. The liver is normal in size. The liver contour is normal. Parenchymal echogenicity is normal. No focal hepatic lesion. There is no intrahepatic biliary duct dilatation seen. GALLBLADDER: There are gallstones some of which are impacted 7 x 4 x 6 mm. Tenderness reported pressing on the gallbladder. There is however no gallbladder wall thickening or pericholecystic fluid collection, no dilatation of the common bile duct. COMMON BILE DUCT: Normal in caliber measuring 0.3 cm in diameter. FREE FLUID: None. US/US abdomen limited IMPRESSION: There are gallstones some of which are impacted, there is tenderness pressing on the gallbladder, gallbladder Segura sign, there is however no gallbladder wall thickening, no pericholecystic fluid collection, and the common bile duct is normal in caliber 3 mm. If there is a clinical suspicion for cholecystitis, consider correlation with follow-up HIDA scan.
[2024-01-15 10:14] LABS: MANUAL DIFF FLAG NO
[2024-01-15 10:18] LABS: Basophils Absolute Auto 0.1 X10*3/uL (0.0-0.2); Basophils Percent Auto 1.8 % (0-2); Eosinophils Absolute Auto 0.3 X10*3/uL (0.0-0.4); Eosinophils Percent Auto 7.8 % (0-4); Hematocrit 45.5 % (42.0-52.0); Hemoglobin 16.5 g/dl (14.0-18.0); Imm Gran Abs Auto 0.01 X10*3/uL (0.00-0.03); Imm Gran Pct Auto 0.3 % (0.0-0.4); Lymphocytes Absolute Auto 1.5 X10*3/uL (1.2-4.9); Lymphocytes Percent Auto 37.7 % (20-40); Mean Corpuscular HGB Conc 36.3 g/dl (31.0-36.0); Mean Corpuscular Hemoglobin 30.5 pg (27.0-33.0); Mean Corpuscular Volume 84.1 fL (80.0-98.0); Mean Platelet Volume 10.5 fL (9.4-12.4); Monocytes Absolute Auto 0.7 X10*3/uL (0.1-1.2); Neutrophils Absolute Auto 1.4 x10*3/uL (2.0-8.3); Neutrophils Percent Auto 34.4 % (45-73); Platelet Count 165 X10*3/uL (160-400); Red Blood Count 5.41 X10*6/uL (4.60-5.80); Red Cell Distribution Width 13.2 % (11.0-16.0)
--- NOTE | 2024-01-15 10:27 | ED.ABDPAIN ---
HPI - Abdominal Pain General Chief Complaint: Abdominal Pain Stated Complaint: R SIDED ABD PAIN STARTED THIS AM Time Seen by Provider: 01/15/24 09:54 Source: patient Mode of arrival: ambulatory History of Present Illness ED Provider: Dr Wallace HPI narrative: 33-year-old male with presentation for acute onset of right upper quadrant pain that radiates into his back with associated nausea and vomiting but denies any fevers or chills/diarrhea. Denies any use of cannabis or other illicit drugs and states he did drink 2 alcoholic beverages yesterday. Related Data Previous Rx's ?Medication ?Instructions ?Recorded acetaminophen 500 mg tablet 500 mg PO Q6H PRN fever or pain 09/10/23 (Tylenol Extra Strength) #14 tabs cyclobenzaprine 5 mg tablet 5 mg PO Q8H PRN pain (scale score 09/10/23 7-10) 5 days #14 tabs lidocaine 5 % topical patch 1 patch topical DAILY PRN pain #30 09/10/23 (Lidoderm) ea naproxen 500 mg tablet 500 mg PO BID PRN pain 10 days #20 09/10/23 tabs hydrocodone 5 mg-acetaminophen 325 1 tab PO Q4-6H PRN pain #30 tabs 01/15/24 mg tablet Allergies Allergy/AdvReac Type Severity Reaction Status Date / Time amoxicillin [AMOXICILLIN] Allergy Unknown UNKNOWN Verified 01/15/24 10:01 red dye [RED DYE] Allergy Unknown HALLUCINATI Verified 01/15/24 10:01 ONS tramadol [TRAMADOL] Allergy Unknown NAUSEA & Verified 01/15/24 10:01 VOMITING Review of Systems Review of Systems Pertinent positives and negatives as stated in HPI [facility] Past Medical History Source: nursing notes reviewed Medical History Acute anxiety Social History Social History Patient Tobacco Use Status: Current everyday Tobacco user Advance Directives: No Advance Directives Information Provided: No Do you have a plan to hurt others: No Plan Current occupational status: unemployed Current occupation: right hand dominant Physical Exam ED Vital Signs: Vital Signs - 24 hr 01/15/24 10:00 01/15/24 14:07 01/15/24 14:34 Temperature 97.9 F Pulse Rate 84 71 Respiratory Rate 22 H 20 18 Blood Pressure 146/84 H 91/56 L Pulse Oximetry 97 99 Oxygen Delivery Method Room Air Room Air 01/15/24 15:28 Temperature 97.6 F Pulse Rate 64 Respiratory Rate 18 Blood Pressure 100/47 L Pulse Oximetry 95 Oxygen Delivery Method Room Air BMI result Body Mass Index 32.6 VITAL SIGNS: Reviewed. GENERAL: Well developed, well nourished, in no acute distress. HEAD: Normocephalic/atraumatic EYES: PERRLA, EOMI EARS: Ext canals without abnormality NOSE: Nares patent bilateral OROPHARYNX: no oral lesions noted, posterior pharynx clear NECK: Supple, no adenopathy LUNGS: Normal breath sounds. No adventitious sounds or accessory muscle use. SpO2<97> CARDIOVASCULAR: Regular rate and rhythm without noted murmurs ABDOMEN: Soft, right upper quadrant pain, Segura's positive, non-distended with bowel sounds. MUSCULOSKELETAL: No tenderness, deformities, or effusions noted on gross inspection. EXTREMITIES: No cyanosis, clubbing or edema. SKIN: Inspection of the skin reveals no rashes NEUROLOGIC: Alert and oriented x 4. Strength and sensation to light touch were grossly intact x 4. Medical Decision Making Medical Decision Making [facility] Narrative: 1020: 33-year-old male with history and clinical presentation, DDX: Cholecystitis, pancreatitis, gastritis, lower clinical suspicion for pneumonia or other intra-abdominal pathology. I reviewed all investigations and hematologic indices are chronically stable without leukocytosis/anemia/thrombocytopenia. Chemistries disease are negative for KARL/electrolyte or liver enzyme derangements. Patient received GI cocktail, continues to be in pain and ultrasound noted to be positive for impacted stones without gallbladder wall thickening or pericholecystic fluid. All results and findings discussed with the patient at bedside. 1419: I discussed case with General surgery, Dr. Wiggins, who will be taking the patient to the operating room. Differential Diagnosis Differential Diagnoses: The differential diagnosis associated with the presentation includes Please see the discussion above Admission/Observation Consideration of admission/observation: Escalation of care including admission/observation considered Please see the discussion above Lab Data [facility] Lab Attestation statement: I reviewed the patient's lab results. Please see the discussion above 01/15/24 10:09 01/15/24 10:09 Labs: Lab Results 01/15/24 01/15/24 Range/Units 10:09 14:36 WBC 4.0 L (4.8-10.8) X10*3/uL RBC 5.41 (4.60-5.80) X10*6/uL Hgb 16.5 (14.0-18.0) g/dl Hct 45.5 (42.0-52.0) % MCV 84.1 (80.0-98.0) fL MCH 30.5 (27.0-33.0) pg MCHC 36.3 H (31.0-36.0) g/dl RDW 13.2 (11.0-16.0) % Plt Count 165 (160-400) X10*3/uL MPV 10.5 (9.4-12.4) fL Immature Gran % (Auto) 0.3 (0.0-0.4) % Neut % (Auto) 34.4 L (45-73) % Lymph % (Auto) 37.7 (20-40) % Hand % (Auto) 18.0 H (2-11) % Eos % (Auto) 7.8 H (0-4) % Baso % (Auto) 1.8 (0-2) % Lymph # (Auto) 1.5 (1.2-4.9) X10*3/uL Hand # (Auto) 0.7 (0.1-1.2) X10*3/uL Eos # (Auto) 0.3 (0.0-0.4) X10*3/uL Baso # (Auto) 0.1 (0.0-0.2) X10*3/uL Abs Immat Gran (auto) 0.01 (0.00-0.03) X10*3/uL Absolute Neuts (auto) 1.4 L (2.0-8.3) x10*3/uL Absolute Nucleated RBC 0.000 (0.0-0.012) X10*3/uL Nucleated RBC % (auto) 0.0 (0.0-0.2) /100WBC Sodium 141 (135-145) mmol/L Potassium 3.9 (3.3-5.1) mmol/L Chloride 105 (96-108) mmol/L Carbon Dioxide 26 (22-29) mmol/L Anion Gap 14 (12-20) BUN 11 (9-16) mg/dL Creatinine 0.89 (0.5-1.4) mg/dL Estim Creat Clear Calc 128.0 Estimated GFR > 60 Random Glucose 113 (60-115) mg/dL Lactic Acid 0.7 (0.5-2.0) mmol/L Calcium 9.0 (8.4-10.2) mg/dL Total Bilirubin 0.5 (0.0-1.0) mg/dL AST 14 (5-37) U/L ALT 16 (0-40) U/L Alkaline Phosphatase 53 (39-117) U/L Total Protein 6.4 L (6.5-8.0) g/dL Albumin 4.1 (3.5-5.0) g/dL Lipase 14 (8-78) U/L Radiology Impression Discussion of test interpretation with radiology: I have reviewed the radiologist's reading. Radiologist Impression: Please see the discussion above External Record Review External record reviewed: Outpatient record, Prior outpatient labs and Prior outpatient radiology Medications Administered Generic Name Dose Route Start Last Admin Trade Name Freq PRN Reason Stop Dose Admin Ceftriaxone Sodium 2 gm/ 50 mls @ 100 mls/hr 01/15/24 15:15 01/15/24 15:31 Sodium Chloride IV 01/15/24 15:44 100 mls/hr ONCE ONE Administration Discontinued Medications Generic Name Dose Route Start Last Admin Trade Name Freq PRN Reason Stop Dose Admin Al Hydroxide/Mg Hydroxide 30 ml 01/15/24 09:56 01/15/24 10:32 Magnesium Hydrox/Alum Hydrox 30 Ml Oral.Susp PO 01/15/24 09:57 30 ml ONCE ONE Administration Fentanyl 25 mcg 01/15/24 14:19 01/15/24 14:34 Fentanyl Citrate/Pf 100 Mcg/2 Ml Vial IVPUSH 01/15/24 14:20 25 mcg ONCE ONE Administration Protocol Sodium Chloride 1,000 mls @ 999 mls/hr 01/15/24 14:30 01/15/24 14:34 Ns IV 01/15/24 15:30 999 mls/hr .Q1H1M JODI Administration Lidocaine HCl 10 ml 01/15/24 09:56 01/15/24 10:31 Lidocaine Hcl Viscous 2 % 15 Ml Solution MUCOUS MEM 01/15/24 09:57 10 ml ONCE ONE Administration Ondansetron HCl 4 mg 01/15/24 14:19 01/15/24 14:34 Ondansetron Hcl 4 Mg/2 Ml Vial IVPUSH 01/15/24 14:20 4 mg ONCE ONE Administration Critical Care Time Critical Care Time Critical Care Time: Yes Total Critical Care Time: 45 Attestation: I personally attest to this time spent taking care of the patient. Discharge Plan Discharge Clinical Impression: Acute cholecystitis Patient Disposition: Xfer Other Additional Instructions: Ice to wound 20 minutes several times today and tomorrow. May shower in 2 days. Remove outside dressing only. Leave Steri-Strips intact. No strenuous activities Prescriptions: New hydrocodone-acetaminophen 5-325 mg tablet 1 tab PO Q4-6H PRN (Reason: pain) Qty: 30 0RF Rx Instructions: Partial Fill upon patient request. No Action acetaminophen [Tylenol Extra Strength] 500 mg tablet 500 mg PO Q6H PRN (Reason: fever or pain) Qty: 14 0RF lidocaine [Lidoderm] 5 % adhesive patch,medicated 1 patch topical DAILY MDD remove after 12 hours PRN (Reason: pain) Qty: 30 0RF Rx Instructions: leave on most painful area for up to 12 hrs naproxen 500 mg tablet 500 mg PO BID PRN (Reason: pain) 10 Days Qty: 20 0RF cyclobenzaprine 5 mg tablet 5 mg PO Q8H PRN (Reason: pain (scale score 7-10)) 5 Days Qty: 14 0RF Referrals: Physician,None [Primary Care Provider] - Herve Wiggins MD [Physician] - Print Language: Kiswahili
[2024-01-15 10:31] LABS: Alanine Aminotransferase 16 U/L (0-40); Albumin Level 4.1 g/dL (3.5-5.0); Alkaline Phosphatase 53 U/L (39-117); Anion Gap 14 (12-20); Aspartate Amino Transferase 14 U/L (5-37); Bilirubin Total 0.5 mg/dL (0.0-1.0); Blood Urea Nitrogen 11 mg/dL (9-16); Carbon Dioxide 26 mmol/L (22-29); Chloride 105 mmol/L (96-108); Estimated Glomerular Filt Rate > 60; Glucose Random 113 mg/dL (60-115); Lipase 14 U/L (8-78); Potassium 3.9 mmol/L (3.3-5.1); Sodium 141 mmol/L (135-145); Total Protein 6.4 g/dL (6.5-8.0)
[2024-01-15] MEDS: Lidocaine HCl Viscous 2 % 15 ML SOLUTION 10 ML MUCOUS MEM (10:31)
[2024-01-15] MEDS: Magnesium Hydrox/Alum Hydrox 30 ML ORAL.SUSP PO (10:32)
--- NOTE | 2024-01-15 10:43 | PC.NURSE ---
IV established, labs obtained and sent. patient medicated per the MAR, family at bedside. call scooter w/in reach
[2024-01-15] MEDS: fentaNYL citrate/PF 100 MCG/2 ML VIAL 25 MCG IVPUSH (14:34)
[2024-01-15] MEDS: 0.9 % Sodium Chloride 1,000 ML 999 ML IV (14:34)
[2024-01-15] MEDS: ondansetron HCL 4 MG/2 ML VIAL IVPUSH (14:34)
[2024-01-15 14:54] LABS: Lactic Acid 0.7 mmol/L (0.5-2.0)
--- NOTE | 2024-01-15 15:22 | PM.HPGS ---
History of Present Illness History of Present Illness Date of Service: 01/15/24 Chief complaint: R SIDED ABD PAIN STARTED THIS AM Narrative: Rich Rubio is a 33 year old male who has had 2 ER visits for right upper quadrant pain have increased in severity. Each workup demonstrated cholelithiasis. Patient's current symptoms have commenced for a proximally 2 days time. Because of increasing severity patient now presents to the emergency department for further evaluation. Patient is noted these symptoms for several months time. He otherwise has regular bowel habits. Never been jaundiced before. Chart was reviewed and patient evaluate . Patient's mother also arrived and the situation was also reviewed with her [facility] Past Medical History Medical History Acute anxiety Social History Social History Patient Tobacco Use Status: Current everyday Tobacco user Advance Directives: No Advance Directives Information Provided: No Do you have a plan to hurt others: No Plan Current occupational status: unemployed Current occupation: right hand dominant Meds Allergies Allergy/AdvReac Type Severity Reaction Status Date / Time amoxicillin [AMOXICILLIN] Allergy Unknown UNKNOWN Verified 01/15/24 10:01 red dye [RED DYE] Allergy Unknown HALLUCINATI Verified 01/15/24 10:01 ONS tramadol [TRAMADOL] Allergy Unknown NAUSEA & Verified 01/15/24 10:01 VOMITING Active Medications: Current Medications Sodium Chloride (Ns) 1,000 mls @ 999 mls/hr IV .Q1H1M JODI Stop: 01/15/24 15:30 Last Admin: 01/15/24 14:34 Dose: 999 mls/hr Ceftriaxone Sodium 2 gm/ (Sodium Chloride) 50 mls @ 100 mls/hr IV ONCE ONE Stop: 01/15/24 15:44 Physical Exam Vital Signs: Vital Signs: Last Vital Signs Temp 97.9 F 01/15/24 10:00 Pulse 71 01/15/24 14:07 Resp 18 01/15/24 14:34 BP 91/56 L 01/15/24 14:07 Pulse Ox 99 01/15/24 14:07 O2 Del Method Room Air 01/15/24 14:07 BMI result Body Mass Index 32.6 Chest: Other: Chest breath sounds bilaterally, HS 1 in 2 GI: Other: Abdomen soft, thin, marked right upper quadrant tenderness and positive Segura sign Results Results Labs: Short CBC 01/15/24 Range/Units 10:09 WBC 4.0 L (4.8-10.8) X10*3/uL Hgb 16.5 (14.0-18.0) g/dl Hct 45.5 (42.0-52.0) % Plt Count 165 (160-400) X10*3/uL BMP 01/15/24 10:09 Sodium 141 Potassium 3.9 Chloride 105 Carbon Dioxide 26 BUN 11 Creatinine 0.89 Calcium 9.0 Liver Function 01/15/24 Range/Units 10:09 Total Bilirubin 0.5 (0.0-1.0) mg/dL AST 14 (5-37) U/L ALT 16 (0-40) U/L Alkaline Phosphatase 53 (39-117) U/L Albumin 4.1 (3.5-5.0) g/dL Assessment and Plan (1) Acute cholecystitis: Status: Acute Plan Risks, benefits, and alternatives laparoscopic possible open cholecystectomy reviewed with the patient and included but not limited to bleeding, infection, recurrence of symptoms, numbness, pain, scarring, bowel or bile duct injury or leak and the patient wished to proceed. All questions answered. Arrangements were made for this for today. Quality Stroke Does the patient have a stroke diagnosis?: No VTE Prior VTE?: No VTE Risk Level:: Surgical - low VTE Device Contraindication: Treatment Not Indicated VTE Drug Contraindication: Treatment Not Indicated Procedures Date of Service Date of Service: 01/15/24
[2024-01-15] MEDS: cefTRIAXone sodium 2 GM in 0.9 % Sodium Chloride 50 ML IV (15:31)
--- NOTE | 2024-01-15 15:53 | P.CONAN_ITS ---
[facility] Active Problems Active Problems: All Active Problems Acute cholecystitis (Acute) Crush injury to finger (Acute) Past Medical History Medical History Acute anxiety Family History Family history of problems with anesthesia: No Surgical History History of Problems with Anesthesia: No Social History Social History Patient Tobacco Use Status: Current everyday Tobacco user Advance Directives: No Advance Directives Information Provided: No Do you have a plan to hurt others: No Plan Current occupational status: unemployed Current occupation: right hand dominant Meds Allergies Allergy/AdvReac Type Severity Reaction Status Date / Time amoxicillin [AMOXICILLIN] Allergy Unknown UNKNOWN Verified 01/15/24 10:01 red dye [RED DYE] Allergy Unknown HALLUCINATI Verified 01/15/24 10:01 ONS tramadol [TRAMADOL] Allergy Unknown NAUSEA & Verified 01/15/24 10:01 VOMITING Active Medications: Current Medications Clindamycin Phosphate (Cleocin) 900 mg in 50 mls @ 50 mls/hr IV PREOP ONE Stop: 01/15/24 16:20 Exam Height,Weight and Vital Signs: Height 5 ft 7 in Weight 94.4 kg Last Vital Signs Temp 97.6 F 01/15/24 15:28 Pulse 64 01/15/24 15:28 Resp 18 01/15/24 15:28 BP 100/47 L 01/15/24 15:28 Pulse Ox 95 01/15/24 15:28 O2 Del Method Room Air 01/15/24 15:28 Pertinent Lab Results Pertinent Lab Results: Laboratory Tests 01/15/24 01/15/24 10:09 14:36 WBC 4.0 L RBC 5.41 Hgb 16.5 Hct 45.5 MCV 84.1 MCH 30.5 MCHC 36.3 H RDW 13.2 Plt Count 165 MPV 10.5 Immature Gran % (Auto) 0.3 Neut % (Auto) 34.4 L Lymph % (Auto) 37.7 [place] % (Auto) 18.0 H Eos % (Auto) 7.8 H Baso % (Auto) 1.8 Lymph # (Auto) 1.5 [place] # (Auto) 0.7 Eos # (Auto) 0.3 Baso # (Auto) 0.1 Abs Immat Gran (auto) 0.01 Absolute Neuts (auto) 1.4 L Absolute Nucleated RBC 0.000 Nucleated RBC % (auto) 0.0 Sodium 141 Potassium 3.9 Chloride 105 Carbon Dioxide 26 Anion Gap 14 BUN 11 Creatinine 0.89 Estim Creat Clear Calc 128.0 Estimated GFR > 60 Random Glucose 113 Lactic Acid 0.7 Calcium 9.0 Total Bilirubin 0.5 AST 14 ALT 16 Alkaline Phosphatase 53 Total Protein 6.4 L Albumin 4.1 Lipase 14 Airway Mallampati Class: II TM Dist: >3cm Neck ROM: Full Assessment and Plan Assessment Anesthesia Assessment: Anesthesia Plan Discussed, Smoking Cess. Discussed and Chart Reviewed Final Anesthetic Review Family History of Problems with Anesthesia: No History of Problems with Anesthesia: No ASA Class: II and Emergency Final Preanesthetic Review: No Changes in Pt Med Stat, Meds/Allgs Chart Reviewed, Consent Obtained/Reviewed and Anes Risks/Benef Reviewed Patient Risk: Low Procedure Risk: Intermediate Anesthetic Plan Anesthetic Plan: GA Disposition: Standard PACU
--- NOTE | 2024-01-15 17:22 | W.PM.OPN ---
Operative Note Operative Note Date of Service: 01/15/24 Narrative: Preoperative diagnosis: [] Acute cholecystitis Postop diagnosis: [] The same Procedure [] laparoscopic cholecystectomy Surgeon: [] Feliciano Signs And Displays Salesperson: [] Luis Type of Anesthesia: [] General Indication for surgery: [] Acute cholecystitis. Edematous inflamed gallbladder. Moderately intrahepatic gallbladder. Findings: [] Patient brought to the operating room, placed on operative table in supine position, after an adequate level of general anesthesia was induced, the patient's abdomen was prepped and draped in usual sterile fashion. Using a supraumbilical curvilinear incision, Hoyos technique was used to insufflate abdominal cavity to 15 mm of CO2. Upper midline and right subcostal ports were placed under direct laparoscopic view, the patient placed in reverse Trendelenburg position, and tilted to the left. Gallbladder was grasped using laparoscopic graspers, and retracted superiorly and laterally. Common bile duct was identified and preserved throughout the procedure. Cystic artery and cystic duct were each identified, circumferentially skeletonized, each traced directly into the gallbladder, and critical view obtained. Each was clipped proximally x2, distally x1, and transected. Gallbladder was then cauterized in the gallbladder fossa using Bovie. A small posterior descending arterial branch was additionally clipped during dissection of the gallbladder fossa. Specimen was placed in an Endo-Catch bag, a retrieved through the umbilical port. Abdominal cavity was very copiously irrigated, and secured hemostasis. All ports were removed under direct laparoscopic view. Wounds were closed in the following manner; umbilical wound is fascia reapproximated using interrupted 0 Vicryl sutures. Skin wounds were closed using subcuticular 4-0 Vicryl sutures followed by Steri-Strips and sterile dressings. Wounds were infiltrated 0.5% Marcaine at completion. Sponge, needle, and instrument counts reported correct. Patient tolerated the procedure well and emerged from anesthesia stable condition. EBL minimal
[2024-01-15] MEDS: fentaNYL citrate/PF 100 MCG/2 ML VIAL 50 MCG IVPUSH ×2 (17:32→17:47)
--- NOTE | 2024-01-16 08:29 | MHC.CM.PN ---
Patient d/c'd home before being seen by case management.
== END 2024-01-15 18:33 | disposition home or self-care (01) ==
LOC: HO.ED 15:25 → HO.SSS 15:46
PROVIDERS: Surgery; Emergency Provider Student in an Organized Health Care Education/Training Program; Visit Provider Student in an Organized Health Care Education/Training Program
PROC: 0FT44ZZ Resection of Gallbladder, Percutaneous Endoscopic Approach (ICD-10-PCS; CPT 47562; principal; 2024-01-15 16:00)
DX: K81.0 Acute cholecystitis (principal); R10.11 Right upper quadrant pain; F17.210 Nicotine dependence, cigarettes, uncomplicated
CPT/HCPCS: 47562; 36415; 76705; 80053; 83605; 83690; 85025; 87040; 88304; 96361; 96365; 99284; 99285; J0131; J0696; J0736; J1100; J1596; J2250; J2405; J2704; J2795; J3010

== ENCOUNTER → 2024-01-15 10:14 | Outpatient (BNV) | payer OTHER, SELFPAY | PROVIDERS: Emergency Provider Student in an Organized Health Care Education/Training Program; Visit Provider Surgery | DX: K81.0 Acute cholecystitis (principal) | CPT/HCPCS: 47562; 99284 ==

== ENCOUNTER 2024-01-17 14:49 | Emergency (ER) | payer OTHER, SELFPAY ==
--- NOTE | ~2024-01-17 | CT_ITS ---
EXAMINATION: CT ABDOMEN AND PELVIS WITH CONTRAST CLINICAL INFORMATION: Postcholecystectomy on 01/15/2024 with peritoneal signs COMPARISON: CT abdomen pelvis 10/11/2023 and ultrasound abdomen the 01/15/2024 TECHNIQUE: Multidetector volumetric images were obtained from the superior aspect of the liver through the pubic symphysis following administration 85 mL of Omnipaque 350 intravenous contrast. Sagittal and coronal reformatted images were obtained on the technologist's workstation. Oral contrast: No This CT examination was performed using dose optimization techniques as appropriate, variously including the following: *Automated exposure control *Adjustment of mA and/or kV according to patient size (this includes techniques or standardized protocols for targeted exams where dose is matched to indication/reason for exam; i.e. extremities or head) *Use of iterative reconstruction technique DLP: 630 mGy-cm FINDINGS: LUNG BASES: Bibasilar atelectasis is present, right greater than left. No pleural effusions or pneumothorax. LIVER, GALLBLADDER, AND BILIARY TREE: The liver is again noted to be enlarged measuring 19.8 cm in cephalocaudad dimension. No focal hepatic lesion or biliary ductal dilatation is present. Interval cholecystectomy since 01/15/2024 with clips are present in the gallbladder fossa. There is a tiny fluid collection in the gallbladder fossa measuring 2.6 x 2.1 x 3.1 cm (2:33 and 5:28). A few small bubbles of free intraperitoneal air remain in the anterior abdomen (for example 2:40 and 55). This is probably within normal limits for surgery 2 days prior. Some air is present in the soft tissues around the umbilicus probably secondary to access site. PANCREAS: Unremarkable. SPLEEN: Splenomegaly at 12.7 cm. ADRENAL GLANDS: Unremarkable. KIDNEYS AND URETERS: The kidneys are normal in size, shape, and attenuation. No hydronephrosis, hydroureter, or calculi seen. No perinephric stranding. BLADDER: Unremarkable. GASTROINTESTINAL TRACT: The small and large bowel are unremarkable. The appendix is unremarkable. ABDOMINAL WALL: No significant hernia is appreciated. LYMPH NODES: Some small shotty retroperitoneal lymph nodes are present similar to prior but no adenopathy. VASCULAR: Unremarkable. PELVIC VISCERA: The prostate and seminal vesicles are unremarkable. A small amount of free fluid is present in the pelvis, new when compared to prior. OSSEOUS STRUCTURES: Unremarkable. CT/CT abdomen pelvis w IV con IMPRESSION: 1. Interval cholecystectomy with a small fluid collection in the gallbladder fossa. 2. A few small bubbles of free intraperitoneal air are present which are probably within normal limits for surgery 2 days prior. 3. A small amount of free fluid is present in the pelvis. 4. Other incidental findings as described above. Fleischner guidelines were followed.
[2024-01-17 14:53] VITALS: BP 139/66; PULSE 82; RESP 20; TEMP 37.1; O2SAT 98; BMI 33.6
--- NOTE | 2024-01-17 14:54 | ED_ITS ---
HPI - General Adult General Chief complaint: Abdominal Pain Stated complaint: Surgery 2 days ago/Severe abd pain Time Seen by Provider: 01/17/24 16:46 Source: patient Mode of arrival: ambulatory Limitations: no limitations History of Present Illness HPI narrative: Patient is 33 years old with history of cholecystectomy done on 01/14 was good for 24 hours no nausea no vomiting no diarrhea no fever had some chills has not moved his bowels yet had a coughing fit prior to arrival and felt something popped and since then been having pain in the mid abdomen radiating to the lower abdomen increases on ambulation and palpation no fever no urinary complaint patient did not eat much today Related Data Previous Rx's ?Medication ?Instructions ?Recorded acetaminophen 500 mg tablet 500 mg PO Q6H PRN fever or pain 09/10/23 (Tylenol Extra Strength) #14 tabs cyclobenzaprine 5 mg tablet 5 mg PO Q8H PRN pain (scale score 09/10/23 7-10) 5 days #14 tabs lidocaine 5 % topical patch 1 patch topical DAILY PRN pain #30 09/10/23 (Lidoderm) ea naproxen 500 mg tablet 500 mg PO BID PRN pain 10 days #20 09/10/23 tabs hydrocodone 5 mg-acetaminophen 325 1 tab PO Q4-6H PRN pain #30 tabs 01/15/24 mg tablet benzonatate 200 mg capsule 200 mg PO TID PRN cough #30 caps 01/17/24 bisacodyl 5 mg tablet,delayed 5 mg PO BEDTIME PRN constipation 01/17/24 release (Dulcolax (bisacodyl)) #30 tabs cefuroxime axetil 500 mg tablet 500 mg PO BID 7 days #14 tabs 01/17/24 Allergies Allergy/AdvReac Type Severity Reaction Status Date / Time amoxicillin [AMOXICILLIN] Allergy Unknown UNKNOWN Verified 01/17/24 14:55 red dye [RED DYE] Allergy Unknown HALLUCINATI Verified 01/17/24 14:55 ONS tramadol [TRAMADOL] Allergy Unknown NAUSEA & Verified 01/17/24 14:55 VOMITING Review of Systems 2 Review of Systems: Yes all other systems are reviewed and are negative PMFSH Past Medical History Medical History Acute anxiety Social History Social History Patient Tobacco Use Status: Current everyday Tobacco user Smoked in Last 30 Days: Yes Use of substances other than those prescribed or required for medical reasons: No Advance Directives: No Advance Directives Information Provided: No Do you have a plan to hurt others: No Plan Current occupational status: unemployed Current occupation: right hand dominant Physical Exam ED Vital Signs: Vital Signs - 24 hr 01/17/24 14:53 01/17/24 16:43 01/17/24 19:49 Temperature 98.7 F 97.2 F 97.9 F Pulse Rate 82 69 66 Respiratory Rate 20 19 18 Blood Pressure 139/66 113/72 123/80 Pulse Oximetry 98 96 95 Oxygen Delivery Method Room Air Room Air Room Air 01/17/24 20:54 Temperature 97.9 F Pulse Rate 72 Respiratory Rate 18 Blood Pressure 117/72 Pulse Oximetry 96 Oxygen Delivery Method Room Air BMI result Body Mass Index 33.6 Appearance: Alert. Oriented X3. No acute distress. Eyes: No pallor/icterus ENT: Pharynx normal. Oral Mucosa moist Neck: Normal inspection. Neck supple. CVS: Normal heart rate and rhythm. Pulses normal. Respiratory: No respiratory distress. Equal air entry bilateral, no wheezing/rales/rhonchi Abdomen: Soft , tenderness in umbilical area and left lower abdomen with tendernessband guarding Bowel sounds are present, no mass palpable, no CVA tenderness Skin: Skin warm and dry. Normal skin color. Normal skin turgor. Extremities: No lower extremity edema. No calf tenderness Neuro: Oriented X 3. Course Course Course Narrative: This is a rapid medical exam performed by Devin Quinonez NP: Additional HPI, ROS, PE not included below will be deferred to primary provider. Patient is a 33-year-old male s/p cholecystectomy on 01/14 presenting with abdominal pain since returning home from surgery. States at one point he coughed and felt a pop and pain increased around umbilicus. Has been taking meds prescribed without relief. Has not had bowel movement since surgery. Urinating normally. Denies fevers or vomiting. Plan: labs and UA Medications Administered Discontinued Medications Generic Name Dose Route Start Last Admin Trade Name Freq PRN Reason Stop Dose Admin Cefuroxime Axetil 500 mg 01/17/24 20:24 01/17/24 20:49 Cefuroxime Axetil 500 Mg Tablet PO 01/17/24 20:25 500 mg ONCE ONE Administration Sodium Chloride 1,000 mls @ 999 mls/hr 01/17/24 17:07 01/17/24 18:29 Ns IV 01/17/24 18:07 Infused .Q1H1M ONE Infusion Iohexol 100 ml 01/17/24 18:03 01/17/24 18:03 Iohexol 350 Mg/Ml 100 Ml Infus..Btl IV 01/17/24 18:04 85 ml ONCE ONE Administration Magnesium Hydroxide 30 ml 01/17/24 20:23 01/17/24 20:48 Milk Of Magnesia 30 Ml Oral.Susp PO 01/17/24 20:24 30 ml ONCE ONE Administration Morphine Sulfate 4 mg 01/17/24 17:07 01/17/24 17:28 Morphine Sulfate 4 Mg/Ml Cartridge IVPUSH 01/17/24 17:08 4 mg ONCE ONE Administration Protocol Ondansetron HCl 4 mg 01/17/24 17:07 01/17/24 17:26 Ondansetron Hcl 4 Mg/2 Ml Vial IVPUSH 01/17/24 17:08 4 mg ONCE ONE Administration Medical Decision Making Medical Decision Making [facility] Narrative: Patient is postop cholecystectomy CT scan negative for acute patient has been coughing with atelectasis in the right lower lobe will prescribe Augmentin Differential Diagnosis Differential Diagnoses: The differential diagnosis associated with the presentation includes Lab Data [facility] Lab Attestation statement: I reviewed the patient's lab results. 01/17/24 15:03 01/17/24 15:03 Labs: Lab Results 01/17/24 01/17/24 Range/Units 15:03 16:37 WBC 4.0 L (4.8-10.8) X10*3/uL RBC 4.81 (4.60-5.80) X10*6/uL Hgb 14.7 (14.0-18.0) g/dl Hct 42.1 (42.0-52.0) % MCV 87.5 (80.0-98.0) fL MCH 30.6 (27.0-33.0) pg MCHC 34.9 (31.0-36.0) g/dl RDW 13.6 (11.0-16.0) % Plt Count 144 L (160-400) X10*3/uL MPV 10.9 (9.4-12.4) fL Immature Gran % (Auto) 0.0 (0.0-0.4) % Neut % (Auto) 29.9 L (45-73) % Lymph % (Auto) 41.9 H (20-40) % [place] % (Auto) 19.2 H (2-11) % Eos % (Auto) 7.5 H (0-4) % Baso % (Auto) 1.5 (0-2) % Lymph # (Auto) 1.7 (1.2-4.9) X10*3/uL [place] # (Auto) 0.8 (0.1-1.2) X10*3/uL Eos # (Auto) 0.3 (0.0-0.4) X10*3/uL Baso # (Auto) 0.1 (0.0-0.2) X10*3/uL Abs Immat Gran (auto) 0.00 (0.00-0.03) X10*3/uL Absolute Neuts (auto) 1.2 L (2.0-8.3) x10*3/uL Absolute Nucleated RBC 0.000 (0.0-0.012) X10*3/uL Nucleated RBC % (auto) 0.0 (0.0-0.2) /100WBC Sodium 141 (135-145) mmol/L Potassium 4.2 (3.3-5.1) mmol/L Chloride 107 (96-108) mmol/L Carbon Dioxide 28 (22-29) mmol/L Anion Gap 10 L (12-20) BUN 10 (9-16) mg/dL Creatinine 0.86 (0.5-1.4) mg/dL Estim Creat Clear Calc 130.2 Estimated GFR > 60 Random Glucose 96 (60-115) mg/dL Calcium 8.7 (8.4-10.2) mg/dL Total Bilirubin 0.4 (0.0-1.0) mg/dL AST 26 (5-37) U/L ALT 45 H (0-40) U/L Alkaline Phosphatase 48 (39-117) U/L Total Protein 6.0 L (6.5-8.0) g/dL Albumin 3.7 (3.5-5.0) g/dL Amylase 24 L (28-100) U/L Lipase 13 (8-78) U/L Urine Color Yellow Urine Appearance Clear Urine pH 6.0 (5.0-9.0) Ur Specific [place] 1.020 (1.005-1.025) Urine Protein Negative (Neg-Trace) mg/dL Urine Glucose (UA) Negative (Negative) mg/dL Urine Ketones Negative (Negative) mg/dL Urine Blood Negative (Negative) Urine Nitrite Negative (Negative) Ur Leukocyte Esterase Negative (Negative) Independent Interpretation I performed an independent interpretation of an: CT Scan Discharge Plan Discharge Clinical Impression: Acute postoperative abdominal pain, Acute bronchitis Patient Disposition: Home, Self-Care Instructions: Acute Bronchitis (ED), Abdominal Pain (ED), Pain Management After Surgery (DC) Additional Instructions: Take antibiotic and cough drops as prescribed for bronchitis Stool softeners for constipation Continue pain medicine as prescribed Follow with your surgeon Prescriptions: New benzonatate 200 mg capsule 200 mg PO TID PRN (Reason: cough) Qty: 30 0RF cefuroxime axetil 500 mg tablet 500 mg PO BID 7 Days Qty: 14 0RF bisacodyl [Dulcolax (bisacodyl)] 5 mg tablet,delayed release (DR/EC) 5 mg PO BEDTIME PRN (Reason: constipation) Qty: 30 0RF No Action acetaminophen [Tylenol Extra Strength] 500 mg tablet 500 mg PO Q6H PRN (Reason: fever or pain) Qty: 14 0RF lidocaine [Lidoderm] 5 % adhesive patch,medicated 1 patch topical DAILY MDD remove after 12 hours PRN (Reason: pain) Qty: 30 0RF Rx Instructions: leave on most painful area for up to 12 hrs naproxen 500 mg tablet 500 mg PO BID PRN (Reason: pain) 10 Days Qty: 20 0RF cyclobenzaprine 5 mg tablet 5 mg PO Q8H PRN (Reason: pain (scale score 7-10)) 5 Days Qty: 14 0RF hydrocodone-acetaminophen 5-325 mg tablet 1 tab PO Q4-6H PRN (Reason: pain) Qty: 30 0RF Rx Instructions: Partial Fill upon patient request. Interventions: ED Discharge Assessment Last Done: 01/17/24 20:54 Discharge Date/Time: 01/17/24 20:55 Print Language: Mongolian
[2024-01-17 15:06] LABS: MANUAL DIFF FLAG NO
[2024-01-17 15:09] LABS: Basophils Absolute Auto 0.1 X10*3/uL (0.0-0.2); Basophils Percent Auto 1.5 % (0-2); Eosinophils Absolute Auto 0.3 X10*3/uL (0.0-0.4); Eosinophils Percent Auto 7.5 % (0-4); Hematocrit 42.1 % (42.0-52.0); Hemoglobin 14.7 g/dl (14.0-18.0); Lymphocytes Absolute Auto 1.7 X10*3/uL (1.2-4.9); Lymphocytes Percent Auto 41.9 % (20-40); Mean Corpuscular HGB Conc 34.9 g/dl (31.0-36.0); Mean Corpuscular Hemoglobin 30.6 pg (27.0-33.0); Mean Corpuscular Volume 87.5 fL (80.0-98.0); Mean Platelet Volume 10.9 fL (9.4-12.4); Monocytes Absolute Auto 0.8 X10*3/uL (0.1-1.2); Monocytes Percent Auto 19.2 % (2-11); Neutrophils Absolute Auto 1.2 x10*3/uL (2.0-8.3); Neutrophils Percent Auto 29.9 % (45-73); Platelet Count 144 X10*3/uL (160-400); Red Blood Count 4.81 X10*6/uL (4.60-5.80); Red Cell Distribution Width 13.6 % (11.0-16.0)
[2024-01-17 15:15] LABS: Amylase 24 U/L (28-100)
[2024-01-17 15:23] LABS: Alanine Aminotransferase 45 U/L (0-40); Albumin Level 3.7 g/dL (3.5-5.0); Alkaline Phosphatase 48 U/L (39-117); Anion Gap 10 (12-20); Aspartate Amino Transferase 26 U/L (5-37); Bilirubin Total 0.4 mg/dL (0.0-1.0); Blood Urea Nitrogen 10 mg/dL (9-16); Calcium 8.7 mg/dL (8.4-10.2); Carbon Dioxide 28 mmol/L (22-29); Chloride 107 mmol/L (96-108); Creatinine Clr Calc Pharmacy 130.2; Estimated Glomerular Filt Rate > 60; Glucose Random 96 mg/dL (60-115); Lipase 13 U/L (8-78); Potassium 4.2 mmol/L (3.3-5.1); Sodium 141 mmol/L (135-145)
[2024-01-17 16:43] VITALS: BP 113/72; PULSE 69; RESP 19; TEMP 36.2; O2SAT 96
[2024-01-17 16:52] LABS: Appearance Urine Clear; Color Urine Yellow; Glucose Urine UA Negative (Negative); Leukocyte Esterase Urine Negative (Negative); Nitrite Urine Negative (Negative); Urine Blood Negative (Negative); Urine Ketones Negative (Negative); Urine Protein Negative (Neg-Trace)
[2024-01-17] MEDS: 0.9 % Sodium Chloride 1,000 ML 999 ML IV (17:18)
[2024-01-17] MEDS: ondansetron HCL 4 MG/2 ML VIAL IVPUSH (17:26)
[2024-01-17] MEDS: Morphine Sulfate 4 MG/ML CARTRIDGE IVPUSH (17:28)
[2024-01-17] MEDS: iohexoL 350 MG/ML 100 ML INFUS..BTL IV (18:03)
[2024-01-17 19:49] VITALS: BP 123/80; PULSE 66; RESP 18; TEMP 36.6; O2SAT 95
--- NOTE | 2024-01-17 19:50 | MHC.EDTECH ---
This tech took over care of patient at 1900,hourly rounds and vitals completed,patient ambulated to the bathroom with a steady gait.
[2024-01-17] MEDS: Milk of Magnesia 30 ML ORAL.SUSP PO (20:48)
[2024-01-17] MEDS: cefuroxime axetiL 500 MG TABLET PO (20:49)
[2024-01-17 20:54] VITALS: BP 117/72; PULSE 72; RESP 18; TEMP 36.6; O2SAT 96
== END 2024-01-17 20:55 | disposition home or self-care (01) ==
PROVIDERS: Registered Nurse Emergency; Emergency Provider Internal Medicine
DX: G89.18 Other acute postprocedural pain (principal); R10.30 Lower abdominal pain, unspecified; J20.9 Acute bronchitis, unspecified; Z90.49 Acquired absence of other specified parts of digestive tract
CPT/HCPCS: 36415; 74177; 80053; 81003; 82150; 83690; 85025; 96361; 96374; 96375; 99284; J2270; J2405; Q9967

== ENCOUNTER 2024-05-19 23:56 | Emergency (ER) | payer OTHER, SELFPAY ==
[2024-05-20 00:05] VITALS: BP 126/77; BP 166/70; PULSE 108; PULSE 91; RESP 20; TEMP 36.7; O2SAT 94; O2SAT 97; BMI 26.6
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
[2024-05-20 01:26] VITALS: BP 126/77; PULSE 91; RESP 20; TEMP 36.7; O2SAT 94
== END 2024-05-20 01:26 | disposition home or self-care (01) ==
PROVIDERS: Emergency Provider Emergency Medicine
DX: S80.01XA Contusion of right knee, initial encounter (principal); S80.211A Abrasion, right knee, initial encounter; V43.52XA Car driver injured in collision with other type car in traffic accident, initial encounter; Y93.9 Activity, unspecified; Y92.410 Unspecified street and highway as the place of occurrence of the external cause; Y99.9 Unspecified external cause status
CPT/HCPCS: 99283; 99284